=== PATIENT | male | born 1955 | race Caucasian/White ===

== ENCOUNTER 2017-06-24 08:14 | Observation (INO) | payer OTHER ==
[2017-06-24] VITALS (24 sets, daily range): BP systolic 114–166; BP diastolic 55–103; PULSE 46–95; RESP 2–26; Ht 177.8 cm; Wt 71.8 kg
[~2017-06-24] VITALS: Ht 177.8 cm; Wt 71.8 kg
[~2017-06-24 08:14] MED LIST: ALPR0.5T PO; AMLO-147 PO; ASPI325T32 PO; ATOR40TA68 PO; CLOP75TA27 PO; LISI10TA2 PO; METF500T4 PO; OMEP20CA16 PO
[2017-06-24 08:47] LABS: BASOPHIL # 0.1 10^3/ul (0.0-0.1); BASOPHILS % 0.6 % (0.0-2.0); EOSINOPHILS # 0.2 10^3/ul (0.0-0.5); HEMATOCRIT 42.7 % (42.0-52.0); HEMOGLOBIN 14.1 g/dl (14.0-18.0); LYMPHOCYTES # 2.9 10^3/ul (0.8-2.9); LYMPHOCYTES % 18.2 % (15.0-51.0); MEAN CORPUSCULAR HEMOGLOBIN 27.8 pg (29.0-33.0); MEAN CORPUSCULAR VOLUME 84.2 fl (82.0-101.0); MEAN PLATELET VOLUME 9.8 fl (7.4-10.4); MONOCYTE # 0.8 10^3/ul (0.3-0.9); MONOCYTES % 4.8 % (0.0-11.0); NEUTROPHIL # 12.1 10^3/ul (1.6-7.5); NEUTROPHILS % 74.8 % (39.0-77.0); PLATELET COUNT 247 10^3/UL (140-415); RED BLOOD COUNT 5.07 10^6/ul (4.70-6.10); RED CELL DISTRIBUTION WIDTH 14.7 % (11.5-14.5); WHITE BLOOD COUNT 16.1 10^3/ul (4.8-10.8)
[2017-06-24 08:53] LABS: HOLD TRANSMISSIONS 1
[2017-06-24] MEDS ORDERED: NITROGLYCERIN (IC) 100 MCG/ML INJ ONE (08:56)
[2017-06-24] MEDS ORDERED: FENTAnyl 50 MCG/ML VIAL ONE ×2 (08:56→10:40)
[2017-06-24] MEDS ORDERED: MIDAZOLAM 1 MG/ML 2 ML INJ ONE (08:56)
[2017-06-24] MEDS ORDERED: HEPARIN 1000 UNITS/ML 10 ML INJ ONE (08:56)
[2017-06-24] MEDS ORDERED: LIDOCAINE 1% (MDV) 20 ML INJ ONE (08:56)
[2017-06-24] MEDS ORDERED: IODIXANOL LOCM 100 ML BTL ONE (08:56)
[2017-06-24] MEDS ORDERED: VERAPAMIL 5 MG INJ ONE (08:56)
[2017-06-24 09:05] LABS: INR 1.01; PARTIAL THROMBOPLASTIN TIME 29.2 Sec (25.0-35.0); PROTIME 13.3 Sec (12.2-14.2)
[2017-06-24 09:14] LABS: ALBUMIN 4.9 g/dl (3.3-4.9); ALBUMIN/GLOBULIN RATIO 1.4; BILIRUBIN,INDIRECT 0.4 mg/dl (0-1.1); BILIRUBIN,TOTAL 0.4 mg/dl (0.2-1.3); TOTAL PROTEIN 8.4 g/dl (6.1-8.1)
[2017-06-24 09:18] LABS: CALCIUM 9.8 mg/dl (8.4-10.2); CREATININE 0.97 mg/dl (0.61-1.24); POTASSIUM 3.9 mmol/L (3.5-5.1)
[2017-06-24] MEDS ORDERED: METOPROLOL 5 MG INJ ONE ×3 (10:02→11:26)
--- NOTE | 2017-06-24 10:21 | RADRPT ---
PROCEDURE: XR Chest. CLINICAL INDICATION: Preop TECHNIQUE: A single AP view of the chest was obtained. COMPARISON: Chest x-ray dated 01/23/2016 FINDINGS: No focal airspace opacification, pleural effusion or pneumothorax is seen. The cardiomediastinal si lhouette is within normal limits for size. The osseous structures are unremarkable. IMPRESSION: Unremarkable chest x-ray. No significant interval change. RPTAT: HH .Xiomara Cano MD, MD Date Time Electronically viewed and signed by .Xiomara Cano MD, on 06/24/2017 10:20 .G/
[2017-06-24] MEDS ORDERED: ONDANSETRON 4 MG INJ ONE (11:03)
[2017-06-24] MEDS ORDERED: TICAGRELOR 90 MG TABLET ONE (11:30)
[2017-06-24] MEDS ORDERED: ASPIRIN 325 MG TAB ONE (11:30)
[2017-06-24] MEDS ORDERED: SOD CHLORIDE 0.9% 1,000 ML IV SCH (11:36)
--- NOTE | 2017-06-24 11:36 | SIPON ---
Date/Time of Note Date/Time of Note DATE: 06/24/17 TIME: 11:34 Operative Report Preoperative Diagnosis 1.chest pain 2.Abnl MPI Postoperative Diagnosis 1.1.obstructive cad s/p ptca./stent x 3 to PDA/PLB Operation/Procedure Performed 1.[facility] 2.PTCA/stent x 3 with MELISA to PDA/PLB off RCA Surgeon see signature line animal assisted therapist 1.Viviana Anesthesia: moderate sedation Estimated blood loss: minimal Transfusion Required none Specimen NA Grafts/Implants none Complications none ALPESH WELCH Jun 24, 2017 11:36
[2017-06-24] MEDS ORDERED: morphine 2 MG INJ IV PRN (12:00)
[2017-06-24] MEDS ORDERED: ONDANSETRON 4 MG INJ IV PRN (12:00)
[2017-06-24] MEDS ORDERED: METOPROLOL 5 MG INJ IV PRN (12:00)
[2017-06-24] MEDS ORDERED: OXYCODONE/ACETAMINOPHEN (5/325) TAB PO PRN (12:00)
[2017-06-24] MEDS ORDERED: AL HYDROX/MG HYDROX/SIMETH 30 ML CUP PO PRN (12:00)
[2017-06-24] MEDS ORDERED: ZOLPIDEM 5 MG TAB PO PRN (12:00)
[2017-06-24] MEDS ORDERED: ACETAMINOPHEN 325 MG TAB PO PRN (12:00)
[2017-06-24] MEDS ORDERED: AMIODARONE 150MG/D5W BOLUS 100 ML IV ONE (12:00)
[2017-06-24] MEDS ORDERED: AMIODARONE 900 MG in DEXTROSE 5% 482 ML IV SCH (12:00)
--- NOTE | 2017-06-24 13:37 | RADRPT ---
Vent Rate: 59 bpm RR Interval: 0 msec [place] Interval: 144 msec QRS Duration: 96 msec QT Interval: 442 msec QTC Interval: 437 msec P-R-T [place]: 69 - 48 - 83 degrees Sinus bradycardia Septal infarct , age undetermined Abnormal ECG Electronically Signed By: Rigo Quesada [id number]
[2017-06-24] MEDS ORDERED: ALPRAZOLAM 0.5 MG TAB PO PRN (17:30)
[2017-06-24] MEDS ORDERED: INSULIN ASPART [NOVOLOG] 3 ML PEN SC SCH (17:35)
[2017-06-24] MEDS: TICAGRELOR 90 MG TABLET PO SCH (20:37)
--- NOTE | 2017-06-24 20:41 | HP ---
DATE OF ADMISSION: 06/24/2017 CHIEF COMPLAINT AND HISTORY OF PRESENT ILLNESS: The patient is a 61-year-old gentleman with a histo ry of coronary artery disease, hypertension, dyslipidemia, diabetes. Was seen by Dr. Huynh' group as an outpatient and underwent nuclear stress test which was abnormal. The patient was brought int o the hospital today and underwent cardiac cath. The patient was noted to have obstructive coronary artery disease and underwent PTCA and stenting x3 to PDA/PLB. The patient had a drug-eluting stent . The patient was started on aspirin and Brilinta. Prior to admission, the patient was already on aspirin and Plavix. The patient did develop transient atrial fibrillation for which he was started on amiodarone drip; however, the patient has converted into sinus rhythm. Amiodarone has been turne d off. The patient's heart rate did drop into 40s and low 50s. The patient also was on beta blocke r. The dose will be reduced for now. The patient is chest pain-free. The patient denied any abdom inal pain. No reported vomiting. No reported resting leg pain. REVIEW OF SYSTEMS: Rest of review of systems is unremarkable. PAST MEDICAL HISTORY: The patient has a history of coronary artery disease with occlusion of the proximal circumflex. The patient is status post PTCA to proximal circumflex. FAMILY HISTORY: Father at a young age secondary to coronary artery disease. Mother had some s ort of cancer. Brother had coronary artery disease and multiple PTCAs. SOCIAL HISTORY: The patient used to smoke, although he quit smoking in 2012. No alcohol abuse. He did smoke cocaine in the mid 1970s. Currently, he smokes marijuana. PAST SURGICAL HISTORY: As above. PHYSICAL EXAMINATION: GENERAL: The patient is conscious, awake, alert. VITAL SIGNS: Heart rate 47, blood pressure 120/79, O2 sat 98% on room air. HEENT: No eye discharge or redness. Extraocular movements intact. Oropharynx clear. NECK: Supple. No mass, no thyromegaly. CHEST: Clear to auscultation. CARDIOVASCULAR: S1, S2 normal. No murmur, gallop or rub. ABDOMEN: Soft, nondistended, nontender. Bowel sounds present. EXTREMITIES: No leg edema. NEUROLOGIC: The patient is awake, alert, fairly oriented with no gross focal deficit. LABORATORIES: WBC 16.1, hemoglobin 14.1, platelets 247. Sodium 143, potassium 3.9, BUN 70, creatin ine 0.9, glucose 138. Liver enzymes normal. IMPRESSION: 1. Coronary artery disease with multiple percutaneous transluminal coronary angioplasties in the pa st and today underwent percutaneous transluminal coronary angioplasty/stenting x3 to posterior desce nding artery and posterolateral branches. The patient also is status post percutaneous coronary int ervention and stenting of the circumflex in the past. 2. Hypertension. 3. Sinus bradycardia with transient paroxysmal atrial fibrillation. The patient is currently in si nus rhythm after he was given intravenous amiodarone. 4. Dyslipidemia. 5. Diabetes type 2. PLAN: The patient admitted in ICU and will be continued on aspirin. The patient will be switched t o Brilinta. Plavix will be discontinued for now. The patient will be continued on Norvasc, Zestril , and Lipitor. Will decrease dose of Lopressor to 25 b.i.d. Will hold off on metformin due to rece nt cath. Will put him on sliding scale insulin. Plan of care discussed with nursing staff. The [place] tomlin does have unexplained leukocytosis. Will do followup CBC. If the patient still has persisten t leukocytosis, then will work him up. The patient did have slight leukocytosis during his previous admission last year in December and January 2016. Will monitor white count for now. The patient has no fe marcie and no clinical evidence of infection. Dictated By: GLORY PERSAUD/DAISY Conf#: [id number] DID#: [id number]
[2017-06-24] MEDS: INSULIN ASPART [NOVOLOG] 3 ML PEN SC SCH (20:45)
[2017-06-24] MEDS ORDERED: METOPROLOL 50 MG TAB PO SCH (21:00)
[2017-06-24] MEDS ORDERED: ATORVASTATIN 40 MG TAB PO SCH (21:00)
[2017-06-25] VITALS (15 sets, daily range): BP systolic 119–162; BP diastolic 54–109; PULSE 47–72; RESP 12–21
[2017-06-25] MEDS ORDERED: ACCU-CHEK XX SCH (02:00)
[2017-06-25 05:39] LABS: BASOPHIL # 0.1 10^3/ul (0.0-0.1); BASOPHILS % 0.5 % (0.0-2.0); EOSINOPHILS # 0.2 10^3/ul (0.0-0.5); EOSINOPHILS % 1.8 % (0.0-7.0); HEMATOCRIT 41.4 % (42.0-52.0); HEMOGLOBIN 13.7 g/dl (14.0-18.0); LYMPHOCYTES # 2.5 10^3/ul (0.8-2.9); LYMPHOCYTES % 19.5 % (15.0-51.0); MEAN CORPUSCULAR HEMOGLOBIN 28.2 pg (29.0-33.0); MEAN CORPUSCULAR HGB CONC 33.1 g/dl (32.0-37.0); MEAN CORPUSCULAR VOLUME 85.2 fl (82.0-101.0); MEAN PLATELET VOLUME 10.2 fl (7.4-10.4); MONOCYTE # 0.7 10^3/ul (0.3-0.9); NEUTROPHIL # 9.5 10^3/ul (1.6-7.5); NEUTROPHILS % 72.7 % (39.0-77.0); PLATELET COUNT 222 10^3/UL (140-415); RED BLOOD COUNT 4.86 10^6/ul (4.70-6.10); RED CELL DISTRIBUTION WIDTH 14.6 % (11.5-14.5); WHITE BLOOD COUNT 13.1 10^3/ul (4.8-10.8)
[2017-06-25] MEDS ORDERED: PANTOPRAZOLE (EC) 40 MG TAB PO SCH (06:00)
[2017-06-25 06:15] LABS: CALCIUM 9.1 mg/dl (8.4-10.2); CREATININE 0.99 mg/dl (0.61-1.24); POTASSIUM 3.6 mmol/L (3.5-5.1)
--- NOTE | 2017-06-25 07:00 | CARRPT ---
DATE OF PROCEDURE: 06/24/2017 TYPE OF PROCEDURE: 1. Left heart catheterization. 2. Coronary angiography. 3. Measurement of left ventricular end-diastolic pressure. 4. Percutaneous transluminal coronary angioplasty with placement of Synergy drug-eluting stents x3 to posterior descending artery posterolateral branch, a 2.25 x 20 mm to posterolateral branch, 2.25 x 20 mm and 2.25 x 16 mm to posterior descending artery. ATTENDING PHYSICIAN: Alpesh Huynh MD REFERRING PHYSICIAN: Self-referred. INDICATION: Unstable angina with positive stress test findings for ischemia. TYPE OF ANESTHESIA: Conscious and local. BRIEF HISTORY: Mr. Le is a 61-year-old male with history of hypertension, dyslipidemia, cardiomyop athy, decreased left ventricular ejection fraction, coronary artery disease status post prior PTCA a nd stent placement who presented with recurrent complaints of substernal chest pain concerning for u nstable angina. The patient underwent a cardiac stress test showing positive ischemia. The patient has now been brought back to cardiac geochemical laboratory technician in order to assess for the possibility of significant obstructive coronary artery disease lending to chest pain and subsequent positive stress test findi ngs. PROCEDURE: After informed consent was obtained, the patient was brought to the [facility] cardiac geochemical laboratory technician where his left radial area was prepped and draped in the usual sterile fas hion. Lidocaine 2% was infiltrated into the left radial area in order to achieve adequate local ane sthesia. Using modified Seldinger technique, the left radial artery was cannulated and a 6-Eritrean a rterial sheath was placed. A 6-Eritrean JL3.5 catheter was used to cannulate the left main coronary o stium. With contrast injection, multiple views of the left coronary arterial system were obtained. JL3.5 guidewire and a JR4 was used to cannulate the right coronary arterial ostium. With con trast injection, multiple views of the left coronary arterial system were obtained. The JL3.5 was r emoved over a guidewire, and a JR4 was used to cannulate the right coronary arterial ostium. With c ontrast injection, multiple views of the right coronary arterial system were obtained. The JR4 was removed over a guidewire after being used to cross the LV and measure left ventricular end diastolic pressure and pullback across the aortic valve to assess for significant gradient which there was no t. Subsequently at this time, given the finding of significant obstructive lesion, we moved directl y to interventional procedure. The patient was given an additional 3000 units of heparin in additio n to the 5000 he received with his radial cocktail in order to achieve an adequate pre-interventiona l ACT. A guide was used to cannulate the right coronary arterial ostium. A 0.014 balanced __ ___ guidewire was passed distal to the lesion in the PDA, and we then attempted to pass the balanced into the posterolateral branch unsuccessfully, a V Groove Cutter 50 unsuccessfully. Subsequently at th is time, it was elected to restore flow to the PDA, so balloon 2.25 x 12 mm was used to perform pre- dilation and restore flow to the PDA which was 99% subtotally occluded, and then this was upsized to a 2.5 x 12 balloon and further balloon inflations were made, improving flow within this vessel. Th is was removed, and at this time we were able to pass a V Groove Cutter 200 into the posterolateral branch. W e attempted to pass a balloon over that, but due to likely , we were not able to pass this. Ham bsequently, this wire was left in place and a Whisper wire was used to pass into the posterolateral branch and over this, we were able to pass a 2.0 balloon into the vessel and it was ballooned at the area of stenosis up to 14 atmospheres. The balloon was removed, and then the vessel was stented wi a 2.25 x 20 mm drug-eluting stent deployed at 14 atmospheres, post-dilated with the stent deliver y system up to 16 atmospheres. Stent delivery system was removed. Followup angiogram was obtained revealing excellent result, deployment of the stent, YOGI 3 flow throughout the vessel, no signs of complication, including perforation or dissection. Subsequently at this time, as the wire was left in the PDA, we were able to now stent this vessel with a 2.25 x 20 mm drug-eluting stent deployed at 14 atmospheres, post-dilated with the stent delivery system up to 14 atmospheres. Subsequently at this time, a second stent, 2.25 x 16 mm was proximal to the stent with 1 to 2 mm of overlap distal, and it was deployed at 14 atmospheres, post-dilated with stent delivery system up to 16 atmospheres. Stent balloon was then pushed to the stent overlap area and balloon inflations were made up 18 aye ospheres. The stent delivery system was removed. Followup angiogram was obtained revealing excelle nt result, deployment of all 3 stents, now YOGI 3 flow throughout both vessels and no signs of compl ication, including perforation or dissection. Subsequently at this time, the patient was given an a dditional 200 mcg of IC nitroglycerin and followup angiogram was obtained, once again revealing exce llent result. Subsequently at this time, the interventional guide and guidewires were removed. The patient was given 180 of Brilinta and 324 of aspirin. This completed the procedure. There were no noted complications. FINDINGS: 1. Coronary angiography: Left main 4 mm, no significant stenoses. Circumflex proximally is a 3 mm vessel and has a stent in it with in-stent restenosis up to approximately 70% to 80% diffusely and then the AV groove is free of significant focal stenoses. There is a mid branching obtuse mar ginal which is a 2 mm vessel and has an ostial 60% stenosis. The LAD proximally is a 3 mm vessel an d has a stenosis up to approximately 40% in its mid portion and then the LAD does kind of stop just short of the apex. There are proximal and mid branching diagonals, all sub 2 mm vessels with no sig nificant focal stenoses. The right coronary artery proximally is a 3 mm vessel and has a 30% to 40% stenosis shortly after its takeoff. In the mid portion, there is another approximately 40% stenosi s. Then, there is a dominant vessel that gives off PDA and has a 99% subtotal in-stent restenotic o cclusion throughout it diffusely and posterolateral branch is a 2.5 mm vessel and has a 90% focal st enosis in its proximal portion. 2. Measurements: Left ventricular end diastolic pressure is 15 to 16. No significant aortic steno sis by gradient. 3. PTCA and stent placement: Prior to PTCA and stent placement, the patient had a 99% subtotal occ lusion in the PDA. Post-PTCA and stent placement, the patient had no residual stenosis, YOGI 3 flow throughout the vessel and no signs of complication, including perforation or dissection. 4. PTCA and stent placement within posterolateral branch: Prior to PTCA and stent placement within posterolateral branch, the patient had a 90% focal stenosis. Post-PTCA and stent placement, the pa tient had no residual stenosis, YOGI 3 flow throughout the vessel and no signs of complication, incl uding perforation or dissection. TOTAL FLUOROSCOPY TIME: 38 minutes. TOTAL CONTRAST: mL. IMPRESSION: 1. Two-vessel obstructive coronary artery disease involving an in-stent restenotic lesion to the ci rcumflex and extremely high-grade in-stent restenotic lesion to the patient's posterior descending a rtery posterolateral branch bifurcation. Status post successful percutaneous transluminal coronary angioplasty and stent placement x3 to posterior descending artery and posterolateral branch with one to posterolateral branch 2.25 x 20 mm and 2 to posterior descending artery, 2.25 x 20 mm and 2.25 x 16 mm. 2. Normal left heart filling pressures. 3. No significant aortic stenosis by gradient. RECOMMENDATIONS: 1. In light of procedure findings at this time, the patient will be maintained now on Brilinta 90 m g 1 tab p.o. b.i.d. indefinitely, at least 1 year. 2. Aspirin 81 mg 1 tab p.o. daily indefinitely. 3. Maximize medical management. 4. Aggressive risk factor reduction. 5. The patient will be admitted to the ICU for post-intervention observation and continued manageme nt of symptoms. 6. The patient will additionally be given amiodarone load as when we crossed the patient's aortic v alve and checked LVEDP, the patient went into atrial fibrillation which was new for him and, therefo re, will give the patient amiodarone in an attempt to return to sinus rhythm. Dictated By: ALPESH HOPSON/DAISY Conf#: [id number] DID#: [id number]
[2017-06-25] MEDS: INSULIN ASPART [NOVOLOG] 3 ML PEN SC SCH (08:40)
[2017-06-25] MEDS: TICAGRELOR 90 MG TABLET PO SCH (08:45)
[2017-06-25] MEDS ORDERED: AMLODIPINE 10 MG TAB PO SCH (09:00)
[2017-06-25] MEDS ORDERED: LISINOPRIL 10 MG TAB PO SCH (09:00)
[2017-06-25] MEDS ORDERED: ASPIRIN (EC) 81 MG TAB PO SCH (09:00)
[2017-06-25] MEDS ORDERED: METOPROLOL 25 MG TAB PO SCH (09:00)
--- NOTE | 2017-06-25 10:00 | CONS ---
Date/Time of Note Date/Time of Note DATE: 06/25/17 TIME: 09:50 Assessment/Plan Assessment/Plan Chief Complaint/Hosp Course IMP: 1.POD#1 s/p pTCA/stent x 3 to RCA/PLB/PDA with MELISA 2.HTN 3.HL 4.DM 5.PAF Recc: -Continue brilinta/asa -Continue zestril/norvasc -Contiue statin -ambulate patient and if no sig chest pain/dizziness/sob then patient ok for d/ c -Patient with scheduled f/u 07/06/17@9:20 pm wednesday Problems: Consultation Date/Type/Reason Admit Date/Time Jun 24, 2017 at 11:58 Initial Consult Date 06/24/2017 Type of Consultation: Cardiology Reason for Consultation s/p pTCA/stent Referring Provider: GLORY MCNEIL MD Exam/Review of Systems Vital Signs Vitals Vital Signs Date Time Temp Pulse Resp B/P Pulse Ox O2 Delivery O2 Flow Rate FiO2 06/25/17 06:00 61 19 123/84 99 Room Air 06/25/17 04:00 98.3 Intake and Output 06/24/17 06/24/17 06/25/17 15:00 23:00 07:00 Intake Total 478.4 ml 833.4 ml 360 ml Output Total 725 ml 900 ml Balance -246.6 ml -66.6 ml 360 ml Exam Review of Systems: CONSTITUTIONAL: No fevers, chills. PULMONARY: No sob CARDIOVASCULAR: No chest pain/palpitations GASTROINTESTINAL: No nausea/vomiting. GENITOURINARY: No hematuria/dysuria. MUSCULOSKELETAL: No myagias/arthalgias. PSYCHIATRIC: The patient denies depression. NEUROLOGIC: No weakness Constitutional: oriented Psych: no complaints Head: normocephalic ENMT: mucosa pink and moist Neck: jvd (8-9 cm water), supple Respiratory: diminished breath sounds (at bases/B) Cardiovascular: regular rate and rhythm Gastrointestinal: non-tender, soft Musculoskeletal: muscle tone (normal) Extremities: edema (none) Neurological: other (No focal deficits) Results Result Diagram: 06/25/17 0437 06/25/17 0437 Results 24 hrs Laboratory Tests Test 06/24/17 20:44 06/25/17 01:47 06/25/17 04:37 06/25/17 08:39 Bedside Glucose 108 85 99 White Blood Count 13.1 H Red Blood Count 4.86 Hemoglobin 13.7 L Hematocrit 41.4 L Mean Corpuscular Volume 85.2 Mean Corpuscular Hemoglobin 28.2 L Mean Corpuscular Hemoglobin Concent 33.1 Red Cell Distribution Width 14.6 H Platelet Count 222 Mean Platelet Volume 10.2 Neutrophils % 72.7 Lymphocytes % 19.5 Monocytes % 5.0 Eosinophils % 1.8 Basophils % 0.5 Nucleated Red Blood Cells % 0.0 Neutrophils # 9.5 H Lymphocytes # 2.5 Monocytes # 0.7 Eosinophils # 0.2 Basophils # 0.1 Nucleated Red Blood Cells # 0.0 Sodium Level 139 Potassium Level 3.6 Chloride Level 108 Carbon Dioxide Level 24 Anion Gap 11 # Blood Urea Nitrogen 16 Creatinine 0.99 Glucose Level 90 # Calcium Level 9.1 Medications Medications Current Medications Aspirin (Halfprin) 81 mg DAILY PO Last administered on 06/25/17 08:34; Admin Dose 81 MG; Start 06/25/17 at 09:00 Ticagrelor (Brilinta) 90 mg BID PO Last administered on 06/25/17 08:45; Admin Dose 90 MG; Start 06/24/17 at 21:00 Acetaminophen (Tylenol Tab) 650 mg Q4H PRN PO NON-CARDIAC PAIN LEVEL 1-3; Start 06/24/17 at 12:00 Oxycodone/ Acetaminophen (Percocet (5/ 325)) 1 tab Q4H PRN PO REPORTED NON- CARDIAC PAIN 4-7; Start 06/24/17 at 12:00 Morphine Sulfate (morphine) 1 mg Q1H PRN IV PAIN NOT RELIEVED BY OTHERS; Start 06/24/17 at 12:00 Al Hydrox/Mg Hydrox/Simethicone (Mag-Al Plus) 30 ml Q4H PRN PO GASTROINTESTINAL UPSET; Start 06/24/17 at 12:00 Ondansetron HCl (Zofran Inj) 4 mg Q4H PRN IV NAUSEA AND/OR VOMITING; Start at 12:00 Metoprolol Tartrate 5 mg 5 mg Q4H PRN IV HR>110 Hold SBP<100; Start 06/24/17 at 12:00 Amiodarone HCl/ Dextrose (Cordarone Iv/ D5W) 500 ml @ 0 mls/hr Q0M IV Last administered on 06/24/17 14:11; Admin Dose 33.4 MLS/HR; Start 06/24/17 at 12: 00; Stop 06/25/17 at 11:59 Alprazolam (Xanax) 0.5 mg QHS PRN PO insomnia and anxiety; Start 06/24/17 at 17:30 Amlodipine Besylate (Norvasc) 10 mg DAILY PO Last administered on 06/25/17 08 :34; Admin Dose 10 MG; Start 06/25/17 at 09:00 Atorvastatin Calcium (Lipitor) 40 mg QHS PO Last administered on 06/24/17 20: 37; Admin Dose 40 MG; Start 06/24/17 at 21:00 Lisinopril (Zestril) 10 mg DAILY PO Last administered on 06/25/17 08:35; Admin Dose 10 MG; Start 06/25/17 at 09:00 Pantoprazole (Protonix Tab) 40 mg DAILY@06 PO Last administered on 06/25/17 06:00; Admin Dose 40 MG; Start 06/25/17 at 06:00 Diagnostic Test (Pha) (Accu-Chek) 1 ea 02 XX Last administered on 06/25/17 01 :49; Admin Dose 1 EA; Start 06/25/17 at 02:00 Insulin Aspart (Novolog Insulin Pen) NOVOLOG *MILD* ALGORITHM BID SC ; Start at 21:00 Metoprolol Tartrate (Lopressor) 25 mg BID PO ; Start 06/25/17 at 09:00 ALPESH WELCH Jun 25, 2017 10:00
[2017-06-25 12:49] LABS: CK-MB 3.66 ng/ml (0.0-2.4)
[2017-06-25 13:02] LABS: TROPONIN-I 0.461 ng/ml (0.00-0.12)
--- NOTE | 2017-06-25 13:49 | RADRPT ---
Vent Rate: 59 bpm RR Interval: 0 msec [place] Interval: 160 msec QRS Duration: 108 msec QT Interval: 474 msec QTC Interval: 469 msec P-R-T [place]: 56 - -64 - 24 degrees Sinus bradycardia Left anterior fascicular block Nonspecific ST and T wave abnormality Prolonged QT Abnormal ECG Electronically Signed By: Rigo Quesada [id number]
--- NOTE | 2017-06-25 22:10 | DS ---
Date/Time of Note Date/Time of Note DATE: 06/25/17 TIME: 22:08 Discharge Summary Admission/Discharge Info Admit Date/Time Jun 24, 2017 at 11:58 Discharge Date/Time Jun 25, 2017 at 14:25 Patient Condition: Stable Hx of Present Illness The patient is a 61-year-old gentleman with a history of coronary artery disease , hypertension, dyslipidemia, diabetes. Was seen by Dr. Huynh' group as an outpatient and underwent nuclear stress test which was abnormal. The patient was brought into the hospital today and underwent cardiac cath. The patient was noted to have obstructive coronary artery disease and underwent PTCA and stenting x3 to PDA/PLB. The patient had a drug-eluting stent. The patient was started on aspirin and Brilinta. Prior to admission, the patient was already on aspirin and Plavix. The patient did develop transient atrial fibrillation for which he was started on amiodarone drip; however, the patient has converted into sinus rhythm. Amiodarone has been turned off. The patient's heart rate did drop into 40s and low 50s. The patient also was on beta edel. The dose will be reduced for now. The patient is chest pain-free. The patient denied any abdominal pain. No reported vomiting. No reported resting leg pain. Hospital Course 1. Obstructive coronary artery disease with multiple percutaneous transluminal coronary angioplasties in the past and today underwent percutaneous transluminal coronary angioplasty/stenting x3 to posterior descending artery and posterolateral branches. The patient also is status post percutaneous coronary intervention and stenting of the circumflex in the past. 2. Hypertension. 3. Sinus bradycardia with transient paroxysmal atrial fibrillation. The patient is currently in sinus rhythm after he was given intravenous amiodarone. 4. Dyslipidemia. 5. Diabetes type 2. Home Meds Active Scripts Metformin Hcl* (Metformin Hcl*) 500 Mg Tablet, 500 MG PO WITH BREAKFAST DINNE, # 60 TAB Prov:NINI BRAVO MD 02/06/16 Amlodipine Besylate* (Amlodipine Besylate*) 10 Mg Tablet, 10 MG PO DAILY, #30 TAB Prov:NINI BRAVO MD 02/06/16 Alprazolam* (Xanax*) 0.5 Mg Tab, 0.5 MG PO QHS Y for insomnia and anxiety, #10 TAB Prov:KATY HE MD 01/24/16 Aspirin (Aspir-Erin) 325 Mg Tablet., 325 MG PO DAILY for 30 Days Prov:KATY HE MD 01/24/16 Reported Medications Omeprazole* (Omeprazole*) 20 Mg Capsule., 20 MG PO DAILY, #30 CAP 01/23/16 Atorvastatin* (Atorvastatin*) 40 Mg Tablet, 40 MG PO QHS, #30 TAB 01/23/16 Lisinopril* (Lisinopril*) 10 Mg Tablet, 10 MG PO DAILY, #30 TAB 01/23/16 Clopidogrel Bisulfate (Clopidogrel) 75 Mg Tablet, 75 MG PO DAILY, #30 TAB 01/23/16 Follow-up Plan f/up with Dr Huynh in 2 weeks. Primary Care Provider Not On Staff Doctor Time spent on discharge: > 30 minutes Pending Labs Laboratory Tests Test 06/25/17 01:47 06/25/17 04:37 06/25/17 08:39 06/25/17 11:05 Bedside Glucose 85mg/dL (70-220) 99mg/dL (70-220) White Blood Count 13.110^3/ul (4.8-10.8) Red Blood Count 4.8610^6/ul (4.70-6.10) Hemoglobin 13.7g/dl (14.0-18.0) Hematocrit 41.4% (42.0-52.0) Mean Corpuscular Volume 85.2fl (82.0-101.0) Mean Corpuscular Hemoglobin 28.2pg (29.0-33.0) Mean Corpuscular Hemoglobin Concent 33.1g/dl (32.0-37.0) Red Cell Distribution Width 14.6% (11.5-14.5) Platelet Count 97831^3/UL (140-415) Mean Platelet Volume 10.2fl (7.4-10.4) Neutrophils % 72.7% (39.0-77.0) Lymphocytes % 19.5% (15.0-51.0) Monocytes % 5.0% (0.0-11.0) Eosinophils % 1.8% (0.0-7.0) Basophils % 0.5% (0.0-2.0) Nucleated Red Blood Cells % 0.0/100WBC (0.0-0.0) Neutrophils # 9.510^3/ul (1.6-7.5) Lymphocytes # 2.510^3/ul (0.8-2.9) Monocytes # 0.710^3/ul (0.3-0.9) Eosinophils # 0.210^3/ul (0.0-0.5) Basophils # 0.110^3/ul (0.0-0.1) Nucleated Red Blood Cells # 0.010^3/ul (0.0-0.0) Sodium Level 139mmol/L (135-144) Potassium Level 3.6mmol/L (3.5-5.1) Chloride Level 108mmol/L (97-110) Carbon Dioxide Level 24mmol/L (21-31) Anion Gap 11 (8-16) Blood Urea Nitrogen 16mg/dl (7-20) Creatinine 0.99mg/dl (0.61-1.24) Glucose Level 90mg/dl (70-220) Calcium Level 9.1mg/dl (8.4-10.2) Creatine Kinase 168IU/L (23-200) Creatine Kinase Index 2.2 Creatinine Kinase MB (Mass) 3.66ng/ml (0.0-2.4) Troponin I 0.461ng/ml (0.00-0.12) BAUDILIO MARIE Jun 25, 2017 22:10
== END 2017-06-25 14:25 | disposition home or self-care (01) ==
LOC: SDS 08:14 → REC 11:58 → ICU 12:10
PROVIDERS: ADMIT Internal Medicine; ATTEND Internal Medicine
DX: I25.110 Atherosclerotic heart disease of native coronary artery with unstable angina pectoris (principal); Z95.5 Presence of coronary angioplasty implant and graft; I10 Essential (primary) hypertension; E11.9 Type 2 diabetes mellitus without complications; R00.1 Bradycardia, unspecified; I48.0 Paroxysmal atrial fibrillation; E78.5 Hyperlipidemia, unspecified; Z82.49 Family history of ischemic heart disease and other diseases of the circulatory system
CPT/HCPCS: 71010; 80048; 80053; 82550; 82553; 82962; 84484; 85025; 85610; 85730; 93005; 93458; C1725; C1874; C1887; C9600; J0282; J1644; J1815; J2250; J2405; J3010; J7060; Q9967; Z7500; Z7610; 99217; G0378

== ENCOUNTER 2017-07-29 07:00 | Observation (INO) | payer OTHER ==
[2017-07-29] VITALS (14 sets, daily range): BP systolic 110–159; BP diastolic 65–90; PULSE 45–64; RESP 12–18; Ht 177.8 cm; Wt 73.4 kg
[~2017-07-29] VITALS: Ht 177.8 cm; Wt 73.4 kg
[2017-07-29] MEDS ORDERED: LISI40TA9 PO (07:37)
[2017-07-29] MEDS ORDERED: TICA90TA PO (07:38)
[2017-07-29] MEDS ORDERED: HYDR-3671 PO (07:38)
[2017-07-29] MEDS ORDERED: ASPI-664 PO (07:39)
[2017-07-29 08:27] LABS: BASOPHIL # 0.1 10^3/ul (0.0-0.1); BASOPHILS % 0.6 % (0.0-2.0); EOSINOPHILS # 0.2 10^3/ul (0.0-0.5); EOSINOPHILS % 1.1 % (0.0-7.0); HEMATOCRIT 42.5 % (42.0-52.0); HEMOGLOBIN 13.9 g/dl (14.0-18.0); LYMPHOCYTES # 1.8 10^3/ul (0.8-2.9); LYMPHOCYTES % 13.1 % (15.0-51.0); MEAN CORPUSCULAR HEMOGLOBIN 28.1 pg (29.0-33.0); MEAN CORPUSCULAR HGB CONC 32.7 g/dl (32.0-37.0); MEAN PLATELET VOLUME 9.6 fl (7.4-10.4); MONOCYTE # 0.7 10^3/ul (0.3-0.9); MONOCYTES % 4.9 % (0.0-11.0); NEUTROPHIL # 11.2 10^3/ul (1.6-7.5); NEUTROPHILS % 79.6 % (39.0-77.0); PLATELET COUNT 232 10^3/UL (140-415); RED BLOOD COUNT 4.94 10^6/ul (4.70-6.10); RED CELL DISTRIBUTION WIDTH 14.9 % (11.5-14.5)
--- NOTE | 2017-07-29 08:29 | RADRPT ---
PROCEDURE: XR Chest. CLINICAL INDICATION: Preoperative coronary angioplasty clearance. TECHNIQUE: AP Portable chest. COMPARISON: Chest x-ray dated 01/23 2016 and 06/24/2017 FINDINGS: The soft tissues and bones are remarkable for mild thoracic spondylosis and bilateral acromioclavicu lar osteoarthropathy. No focal infiltrates, masses or effusions are present. Hyperinflation is noted . The mediastinum and heart are normal. No pneumothorax is present. IMPRESSION: 1. No radiographic evidence for acute cardiopulmonary disease 2. Hyperinflation RPTAT: HDC .Aliza Bardales MD, Date Time Electronically viewed and signed by .Aliza Bardales MD, on 07/29/2017 08:29 .C/
[2017-07-29 08:41] LABS: HOLD TRANSMISSIONS 1
[2017-07-29 08:46] LABS: INR 0.97; PROTIME 12.9 Sec (12.2-14.2)
[2017-07-29 08:47] LABS: PARTIAL THROMBOPLASTIN TIME 30.1 Sec (25.0-35.0)
[2017-07-29 08:51] LABS: CHOL/HDL RATIO 3.8 RATIO
[2017-07-29 09:00] LABS: CALCIUM 9.5 mg/dl (8.4-10.2); CREATININE 1.13 mg/dl (0.61-1.24); POTASSIUM 3.8 mmol/L (3.5-5.1)
[2017-07-29] MEDS ORDERED: MIDAZOLAM 1 MG/ML 2 ML INJ ONE (09:05)
[2017-07-29] MEDS ORDERED: IODIXANOL LOCM 100 ML BTL ONE (09:05)
[2017-07-29] MEDS ORDERED: HEPARIN 1000 UNITS/ML 10 ML INJ ONE (09:05)
[2017-07-29] MEDS ORDERED: LIDOCAINE 1% (MDV) 20 ML INJ ONE (09:05)
[2017-07-29] MEDS ORDERED: VERAPAMIL 5 MG INJ ONE (09:06)
[2017-07-29] MEDS ORDERED: NITROGLYCERIN (IC) 100 MCG/ML INJ ONE (09:06)
[2017-07-29] MEDS ORDERED: FENTAnyl 50 MCG/ML VIAL ONE (09:06)
[2017-07-29] MEDS ORDERED: ASPIRIN 325 MG TAB ONE (09:41)
[2017-07-29] MEDS ORDERED: SOD CHLORIDE 0.9% 500 ML ONE (09:41)
[2017-07-29] MEDS ORDERED: TICAGRELOR 90 MG TABLET ONE (09:41)
[2017-07-29] MEDS ORDERED: BIVALIRUDIN 250MG /NS 50 ML 50 ML IVPB ONE (09:47)
[2017-07-29] MEDS ORDERED: IOHEXOL 350MG/ML 50 ML BTL ONE (10:53)
[2017-07-29] MEDS ORDERED: SOD CHLORIDE 0.9% 1,000 ML IV SCH (10:54)
--- NOTE | 2017-07-29 10:56 | SIPON ---
Date/Time of Note Date/Time of Note DATE: 07/29/17 TIME: 10:55 Operative Report Preoperative Diagnosis 1.Obstructive cad Postoperative Diagnosis 1.successful PTCA/stent x 2 to LCX Operation/Procedure Performed 1.[facility] 2.PTCA/stent x 2 with Valentina to LCX Surgeon see signature line custody assistant 1.Viviana Anesthesia: moderate sedation Estimated blood loss: minimal Transfusion Required none Specimen NA Grafts/Implants none Complications none ALPESH WELCH Jul 29, 2017 10:56
[2017-07-29] MEDS ORDERED: ZOLPIDEM 5 MG TAB PO PRN (11:00)
[2017-07-29] MEDS ORDERED: ACETAMINOPHEN 325 MG TAB PO PRN (11:00)
[2017-07-29] MEDS ORDERED: AL HYDROX/MG HYDROX/SIMETH 30 ML CUP PO PRN (11:00)
[2017-07-29] MEDS ORDERED: OXYCODONE/ACETAMINOPHEN (5/325) TAB PO PRN (11:00)
[2017-07-29] MEDS ORDERED: ONDANSETRON 4 MG INJ IV PRN (11:00)
--- NOTE | 2017-07-29 12:19 | HP ---
Date/Time of Note Date/Time of Note DATE: 07/29/17 TIME: 12:09 Assessment/Plan VTE Prophylaxis VTE Prophylaxis Intervention: SCD's Assessment/Plan Assessment/Plan -Active coronary artery disease, status post successful PTCA/stent x [address] Huynh on 07/29. Continue ICU monitoring, continue aspirin and Brilinta -History of PTCA to LCX in January 2016 and status post s/p PTCA/stent x 3 to RCA/ PLB/PDA with MELISA in May 2017 -Hypertension -Hyperlipidemia -Diabetes mellitus type 2 Further recommendations based on clinical course. Plan of care discussed with Dr. Luis. HPI/ROS Admit Date/Time Admit Date/Time Hx of Present Illness The patient is 61-year-old male with history of myocardial infarction in 2002 2009 and 2014, history of obstructive coronary artery disease, obstructive cardiomyopathy with decreased ejection fraction,paroxysmal atrial fibrillation, hypertension, hyperlipidemia, diabetes mellitus. Patient had an multiple drug- eluting stents placement in the past, please see assessment and plan for more information. Patient was evaluated by Dr. Huynh in cardiology consultation. Patient brought for a left cardiac catheterization and underwent PTCA/stent x [address] Huynh today with a right radial approach. Postprocedure patient is admitted for observation and to intensive care unit. Patient denies any chest pain denies any soft shortness of breath, denies any nausea vomiting. PMH/Family/Social Past Medical History Medical History: coronary artery disease, diabetes, high cholesterol, hypertension Family History Significant Family History: other (Father at a young age secondary to coronary artery disease. Mother had some sort of cancer. Brother had coronary artery disease and multiple PTCAs.) Social History Alcohol Use: none Smoking Status: Former smoker Drug Use: none Exam/Review of Systems Vital Signs Vitals Vital Signs Date Time Temp Pulse Resp B/P Pulse Ox O2 Delivery O2 Flow Rate FiO2 07/29/17 07:55 97.3 64 16 134/70 100 Room Air Labs Result Diagram: 07/29/17 0816 07/29/17 0816 Medications Medications Current Medications Aspirin (Halfprin) 81 mg DAILY PO ; Start 07/30/17 at 09:00 Ticagrelor (Brilinta) 90 mg BID PO ; Start 07/29/17 at 21:00 Acetaminophen (Tylenol Tab) 650 mg Q4H PRN PO NON-CARDIAC PAIN LEVEL 1-3; Start 07/29/17 at 11:00 Oxycodone/ Acetaminophen (Percocet (5/ 325)) 1 tab Q4H PRN PO REPORTED NON- CARDIAC PAIN 4-7; Start 07/29/17 at 11:00 Al Hydrox/Mg Hydrox/Simethicone (Mag-Al Plus) 30 ml Q4H PRN PO GASTROINTESTINAL UPSET; Start 07/29/17 at 11:00 Ondansetron HCl 4 mg 4 mg Q4H PRN IV NAUSEA AND/OR VOMITING; Start 07/29/17 at 11:00 Sodium Chloride (NS) 1,000 ml @ 75 mls/hr [id number] IV Last administered on t 11:31; Admin Dose 75 MLS/HR; Start 07/29/17 at 10:54; Stop 07/30/17 at 00:13 BAUDILIO MARIE Jul 29, 2017 12:19
--- NOTE | 2017-07-29 13:13 | CARRPT ---
DATE OF PROCEDURE: 07/29/2017 TYPE OF PROCEDURE: 1. Left heart catheterization. 2. Coronary angiography. 3. Measurement of left ventricular end diastolic pressure. 4. Percutaneous transluminal coronary angioplasty with placement of Synergy drug-eluting stent x2 to circumflex, 2.5 x 16 mm and 2.25 x 8 mm. ATTENDING PHYSICIAN: Alpesh Huynh MD REFERRING PHYSICIAN: Self-referred. INDICATION: Angina refractory to medical therapy with known obstructive coronary artery disease. TYPE OF ANESTHESIA: Conscious local. BRIEF HISTORY: Mr. Le is a 61-year-old male with history of hypertension, dyslipidemia, coronary artery disease, status post prior PTCA and stent placement who had recently underwent percutaneous coronary intervention and stent placement to right coronary artery, presented with ongoing chest pain and known obstructive lesion in the circumflex and therefore, brought back in order to intervene upon the patient's circumflex vessel and to reassess the patient's right coronary artery stent due to prior rapid in-stent restenosis. PROCEDURE: After informed consent was obtained, the patient was brought to the [facility]iac [facility]atheter[facility] where his right radial area was prepped and draped in usual sterile fashion. Lidocaine 2% was infiltrated into right radial area in order to achieve adequate anesthesia. Using modified Seldinger technique the right radial artery was cannulated and a 6-Urdu arterial sheath was placed. A 6-Urdu CLS3 catheter was used to cannulate the left main coronary ostium. The patient was started on Angiomax bolus continuous infusion after receiving a radial cocktail at 2.5 verapamil and 200 of IC nitroglycerin. A 0.014 loose guidewire was passed distal to the lesion in the obtuse marginal circumflex. The lesions are pretreated with a 2.0 x 12 mm balloon inflated up to 14-16 atmospheres and removed and a 2.5 x 12 mm balloon was used to inflate in the proximal portion multiple times up to 14- 16 atmospheres and removed. Subsequently, at this time, a 2.25 x 8 mm drug- eluting stent was passed into the most distal portion of the lesion and deployed at 12 atmospheres postdilated with the stent delivery system up to 14 atmospheres. The stent delivery balloon was removed revealing excellent result with deployment of the stent, YOGI 3 flow throughout the vessel, no signs of complication including perforation or dissection. Subsequently, at this time, a second 2.25 x 16 mm drug-eluting stent was then added in the proximal portion of this lesion and with 1 mm overlap of the distal stent and deployed at 14 atmospheres, post-dilated with the stent delivery system up to 16 atmospheres and then the stent overlap area was once again inflated up to 12 atmospheres. The stent delivery balloon was removed and followup angiogram was obtained revealing excellent result with deployment of both stents, YOGI 3 flow throughout the vessel, no signs of complication including perforation or dissection. Additionally noted that the circulation in the AV groove remained widely patent with no effect on flow. Subsequently, at this time, the interventional guide and guidewires were removed, a LVEDP had previously been measured and pullback across the aortic valve to assess for significant gradient , which there was not. Subsequently, at this time, the patient was given 180 of Brilinta, 325 of aspirin. The patient's sheath was removed and a TR band was applied. This completed the procedure. There were no noted complications. FINDINGS: 1. Coronary angiography. Left main short 4 mm, no significant stenoses. LAD proximally is a 3 mm vessel and has a 20-30% stenosis and the remainder of the LAD is widely patent. The circumflex proximally is a 2.5 mm vessel and has a long tubular stenosis up to approximately 80-90% and then just at the bifurcation with the AV groove and obtuse marginal branch a 90% stenosis. The circ continuation AV groove is free of significant focal stenoses, but continues with a sub 2 mm vessel. The patient's right coronary artery proximally is a 3 mm vessel, shortly after takeoff has approximately a 30% stenosis and has a widely patent stented zone in the mid portion as his stent there is in-stent restenosis up to approximately 30% and then in the distal portion to the vessel it is widely patent stent with no significant in-stent restenosis. This goes into a PDA which is 2 mm with no significant focal stenoses and a posterolateral branch which is 2 mm with no significant focal stenoses. PTCA and stent placement: Prior to PTCA and stent placement in the patient's circumflex vessel, he had approximately a 90% stenosis and in-stent restenosis within the circumflex stent and a 90% stenosis just at the bifurcation of the obtuse marginal. Post-PTCA and stent placement, the patient had no residual stenosis, YOGI 3 flow throughout the vessel and no signs of complication including perforation or dissection and once again and no effect upon the flow of the circ continuation AV groove. Measurement of LVEDP was 17 to 19. No significant aortic stenosis by gradient. TOTAL FLUOROSCOPY TIME: 19 minutes. TOTAL CONTRAST: 250 mL. IMPRESSION: 1. Single vessel obstructive coronary artery disease involving the patient's ostial to mid circumflex and continuation into an obtuse marginal. Status post successful PTCA and stent placement x2 with drug-eluting stent 2.25 x 8 mm and 2.5 x 16 mm Synergy. 2. Widely patent right coronary stent with mild in-stent restenosis in mid portion. 3. High normal to mildly elevated left heart filling pressures. 4. No significant aortic stenosis by gradient. RECOMMENDATIONS: In light of procedure findings at this time would: 1. Maintain the patient on aspirin 81 mg 1 tablet p.o. daily indefinitely. 2. Brilinta 90 mg 1 tablet p.o. b.i.d. 3. Maximize medical management. 4. Aggressive risk factor reduction. 5. The patient was readmitted to the ICU for post-intervention observation and continued management of symptoms with probable discharge the following day. Dictated By: ALPESH HOPSON/DAISY Conf#: [id number] DID#: [id number] NEREYDA
--- NOTE | 2017-07-29 15:17 | RADRPT ---
Vent Rate: 59 bpm RR Interval: 0 msec NC Interval: 148 msec QRS Duration: 110 msec QT Interval: 450 msec QTC Interval: 445 msec P-R-T [place]: 55 - -57 - 79 degrees Sinus bradycardia Right bundle branch block Left anterior fascicular block Bifascicular block Abnormal ECG Electronically Signed By: Rigo Quesada [id number]
--- NOTE | 2017-07-29 15:19 | RADRPT ---
Vent Rate: 50 bpm RR Interval: 0 msec IN Interval: 148 msec QRS Duration: 116 msec QT Interval: 468 msec QTC Interval: 426 msec P-R-T [place]: 57 - -35 - 84 degrees Sinus bradycardia Left axis deviation Nonspecific T wave abnormality Abnormal ECG Electronically Signed By: Rigo Quesada [id number]
[2017-07-29] MEDS: TICAGRELOR 90 MG TABLET PO SCH (21:51)
[2017-07-30] VITALS (15 sets, daily range): BP systolic 107–180; BP diastolic 56–93; PULSE 46–69; RESP 11–20
[2017-07-30 06:40] LABS: BASOPHIL # 0.1 10^3/ul (0.0-0.1); BASOPHILS % 0.5 % (0.0-2.0); EOSINOPHILS # 0.2 10^3/ul (0.0-0.5); HEMATOCRIT 39.2 % (42.0-52.0); HEMOGLOBIN 13.4 g/dl (14.0-18.0); LYMPHOCYTES # 1.8 10^3/ul (0.8-2.9); MEAN CORPUSCULAR HEMOGLOBIN 28.9 pg (29.0-33.0); MEAN CORPUSCULAR HGB CONC 34.2 g/dl (32.0-37.0); MEAN CORPUSCULAR VOLUME 84.5 fl (82.0-101.0); MEAN PLATELET VOLUME 9.9 fl (7.4-10.4); MONOCYTE # 0.5 10^3/ul (0.3-0.9); MONOCYTES % 4.6 % (0.0-11.0); NEUTROPHIL # 9.1 10^3/ul (1.6-7.5); NEUTROPHILS % 77.4 % (39.0-77.0); PLATELET COUNT 208 10^3/UL (140-415); RED BLOOD COUNT 4.64 10^6/ul (4.70-6.10); RED CELL DISTRIBUTION WIDTH 14.9 % (11.5-14.5); WHITE BLOOD COUNT 11.8 10^3/ul (4.8-10.8)
[2017-07-30 07:12] LABS: CALCIUM 9.1 mg/dl (8.4-10.2); CREATININE 1.03 mg/dl (0.61-1.24); POTASSIUM 3.8 mmol/L (3.5-5.1)
[2017-07-30] MEDS: TICAGRELOR 90 MG TABLET PO SCH (08:50)
[2017-07-30] MEDS ORDERED: ASPIRIN (EC) 81 MG TAB PO SCH (09:00)
[2017-07-30] MEDS ORDERED: LISINOPRIL 20 MG TAB PO SCH (11:30)
[2017-07-30] MEDS ORDERED: AMLODIPINE 10 MG TAB PO SCH (11:30)
--- NOTE | 2017-07-30 11:33 | CONS ---
Date/Time of Note Date/Time of Note DATE: 07/30/17 TIME: 11:22 Assessment/Plan Assessment/Plan Chief Complaint/Hosp Course IMP: 1. cad s/p PTCA/stent x 2 to LCX POD#1 2. HTN 3.Angina 4.HL Recc: -Tele -serial ecg's -Continue asa/brilinta -F/U BP after receiving norvasc/hydralazine/zestril -Continue statin therapy Problems: Consultation Date/Type/Reason Admit Date/Time Jul 29, 2017 at 11:00 Initial Consult Date 07/29/2017 Type of Consultation: cardiology Reason for Consultation s/p PTCa/stent Referring Provider: GLORY MCNEIL MD Exam/Review of Systems Vital Signs Vitals Vital Signs Date Time Temp Pulse Resp B/P Pulse Ox O2 Delivery O2 Flow Rate FiO2 07/30/17 09:00 60 14 144/92 99 Room Air 07/30/17 07:45 98.6 Intake and Output 07/29/17 07/29/17 07/30/17 15:00 23:00 07:00 Intake Total 550 ml 1145 ml 425 ml Output Total 750 ml 1075 ml 650 ml Balance -200 ml 70 ml -225 ml Exam Review of Systems: CONSTITUTIONAL: No fevers, chills. PULMONARY: No sob CARDIOVASCULAR: No chest pain/palpitations GASTROINTESTINAL: No nausea/vomiting. GENITOURINARY: No hematuria/dysuria. MUSCULOSKELETAL: No myagias/arthalgias. PSYCHIATRIC: The patient denies depression. NEUROLOGIC: No weakness Constitutional: alert, oriented Psych: no complaints Head: normocephalic ENMT: mucosa pink and moist Neck: jvd (8 cm water), supple Respiratory: diminished breath sounds Cardiovascular: regular rate and rhythm Gastrointestinal: non-tender, soft Musculoskeletal: muscle tone (normal) Extremities: edema (none) Neurological: other (No focal deficits) Results Result Diagram: 07/30/17 0610 07/30/17 0610 Results 24 hrs Laboratory Tests Test 07/29/17 18:44 07/30/17 06:10 Bedside Glucose 94 White Blood Count 11.8 H Red Blood Count 4.64 L Hemoglobin 13.4 L Hematocrit 39.2 L Mean Corpuscular Volume 84.5 Mean Corpuscular Hemoglobin 28.9 L Mean Corpuscular Hemoglobin Concent 34.2 Red Cell Distribution Width 14.9 H Platelet Count 208 Mean Platelet Volume 9.9 Neutrophils % 77.4 H Lymphocytes % 15.0 Monocytes % 4.6 Eosinophils % 2.0 Basophils % 0.5 Nucleated Red Blood Cells % 0.0 Neutrophils # 9.1 H Lymphocytes # 1.8 Monocytes # 0.5 Eosinophils # 0.2 Basophils # 0.1 Nucleated Red Blood Cells # 0.0 Sodium Level 140 Potassium Level 3.8 Chloride Level 107 Carbon Dioxide Level 21 Anion Gap 16 Blood Urea Nitrogen 21 H Creatinine 1.03 Glucose Level 102 Calcium Level 9.1 Medications Medications Current Medications Aspirin (Halfprin) 81 mg DAILY PO Last administered on 07/30/17 08:47; Admin Dose 81 MG; Start 07/30/17 at 09:00 Ticagrelor (Brilinta) 90 mg BID PO Last administered on 07/30/17 08:50; Admin Dose 90 MG; Start 07/29/17 at 21:00 Acetaminophen (Tylenol Tab) 650 mg Q4H PRN PO NON-CARDIAC PAIN LEVEL 1-3; Start 07/29/17 at 11:00 Oxycodone/ Acetaminophen (Percocet (5/ 325)) 1 tab Q4H PRN PO REPORTED NON- CARDIAC PAIN 4-7; Start 07/29/17 at 11:00 Al Hydrox/Mg Hydrox/Simethicone (Mag-Al Plus) 30 ml Q4H PRN PO GASTROINTESTINAL UPSET; Start 07/29/17 at 11:00 Ondansetron HCl (Zofran Inj) 4 mg Q4H PRN IV NAUSEA AND/OR VOMITING; Start at 11:00 Amlodipine Besylate (Norvasc) 10 mg DAILY PO ; Start 07/30/17 at 11:30 Hydralazine HCl (Apresoline) 25 mg BID PO ; Start 07/30/17 at 11:30 Lisinopril (Zestril) 40 mg DAILY PO ; Start 07/30/17 at 11:30 Atorvastatin Calcium (Lipitor) 40 mg HS PO ; Start 07/30/17 at 21:00 ALPESH WELCH Jul 30, 2017 11:33
--- NOTE | 2017-07-30 18:10 | DS ---
Date/Time of Note Date/Time of Note DATE: 07/30/17 TIME: 18:09 Discharge Summary Admission/Discharge Info Admit Date/Time Jul 29, 2017 at 11:00 Discharge Date/Time Jul 30, 2017 at 14:30 Patient Condition: Stable Hx of Present Illness The patient is 61-year-old male with history of myocardial infarction in 2002 2009 and 2014, history of obstructive coronary artery disease, obstructive cardiomyopathy with decreased ejection fraction,paroxysmal atrial fibrillation, hypertension, hyperlipidemia, diabetes mellitus. Patient had an multiple drug- eluting stents placement in the past, please see assessment and plan for more information. Patient was evaluated by Dr. Huynh in cardiology consultation. Patient brought for a left cardiac catheterization and underwent PTCA/stent x [address] Huynh today with a right radial approach. Postprocedure patient is admitted for observation and to intensive care unit. Patient denies any chest pain denies any soft shortness of breath, denies any nausea vomiting. Hospital Course -Active coronary artery disease, status post successful PTCA/stent x [address] Huynh on 07/29. Continue ICU monitoring, continue aspirin and Brilinta -History of PTCA to LCX in January 2016 and status post s/p PTCA/stent x 3 to RCA/ PLB/PDA with MELISA in May 2017 -Hypertension -Hyperlipidemia -Diabetes mellitus type 2 Home Meds Active Scripts Metformin Hcl* (Metformin Hcl*) 500 Mg Tablet, 500 MG PO WITH BREAKFAST DINNE, # 60 TAB Prov:NINI BRAVO MD 02/06/16 Amlodipine Besylate* (Amlodipine Besylate*) 10 Mg Tablet, 10 MG PO DAILY, #30 TAB Prov:NINI BRAVO MD 02/06/16 Reported Medications Aspirin (Low Dose Aspirin) 81 Mg Tablet., 81 MG PO DAILY, #30 TAB 07/29/17 Hydralazine Hcl* (Hydralazine Hcl*) 25 Mg Tab, 25 MG PO BID, #120 TAB 07/29/17 Ticagrelor* (Brilinta*) 90 Mg Tablet, 90 MG PO Q12, TAB 07/29/17 Lisinopril* (Lisinopril*) 40 Mg Tablet, 40 MG PO DAILY, #30 TAB 07/29/17 Omeprazole* (Omeprazole*) 20 Mg Capsule., 20 MG PO DAILY, #30 CAP 01/23/16 Atorvastatin* (Atorvastatin*) 40 Mg Tablet, 40 MG PO QHS, #30 TAB 01/23/16 Discontinued Reported Medications Lisinopril* (Lisinopril*) 10 Mg Tablet, 10 MG PO DAILY, #30 TAB 01/23/16 Clopidogrel Bisulfate (Clopidogrel) 75 Mg Tablet, 75 MG PO DAILY, #30 TAB 01/23/16 Discontinued Scripts Alprazolam* (Xanax*) 0.5 Mg Tab, 0.5 MG PO QHS Y for insomnia and anxiety, #10 TAB Prov:KATY HE MD 01/24/16 Aspirin (Aspir-Erin) 325 Mg Tablet., 325 MG PO DAILY for 30 Days Prov:KATY HE MD 01/24/16 Follow-up Plan f/up with Dr Huynh in 10 days. Primary Care Provider Not On Staff Doctor Pending Labs Laboratory Tests Test 07/29/17 18:44 07/30/17 06:10 07/30/17 12:57 Bedside Glucose 94mg/dL (70-220) White Blood Count 11.810^3/ul (4.8-10.8) Red Blood Count 4.6410^6/ul (4.70-6.10) Hemoglobin 13.4g/dl (14.0-18.0) Hematocrit 39.2% (42.0-52.0) Mean Corpuscular Volume 84.5fl (82.0-101.0) Mean Corpuscular Hemoglobin 28.9pg (29.0-33.0) Mean Corpuscular Hemoglobin Concent 34.2g/dl (32.0-37.0) Red Cell Distribution Width 14.9% (11.5-14.5) Platelet Count 69336^3/UL (140-415) Mean Platelet Volume 9.9fl (7.4-10.4) Neutrophils % 77.4% (39.0-77.0) Lymphocytes % 15.0% (15.0-51.0) Monocytes % 4.6% (0.0-11.0) Eosinophils % 2.0% (0.0-7.0) Basophils % 0.5% (0.0-2.0) Nucleated Red Blood Cells % 0.0/100WBC (0.0-0.0) Neutrophils # 9.110^3/ul (1.6-7.5) Lymphocytes # 1.810^3/ul (0.8-2.9) Monocytes # 0.510^3/ul (0.3-0.9) Eosinophils # 0.210^3/ul (0.0-0.5) Basophils # 0.110^3/ul (0.0-0.1) Nucleated Red Blood Cells # 0.010^3/ul (0.0-0.0) Sodium Level 140mmol/L (135-144) Potassium Level 3.8mmol/L (3.5-5.1) Chloride Level 107mmol/L (97-110) Carbon Dioxide Level 21mmol/L (21-31) Anion Gap 16 (8-16) Blood Urea Nitrogen 21mg/dl (7-20) Creatinine 1.03mg/dl (0.61-1.24) Glucose Level 102mg/dl (70-220) Calcium Level 9.1mg/dl (8.4-10.2) Troponin I 0.047ng/ml (0.00-0.12) BAUDILIO MARIE Jul 30, 2017 18:10
[2017-07-30] MEDS ORDERED: ATORVASTATIN 40 MG TAB PO SCH (21:00)
--- NOTE | 2017-08-02 13:20 | RADRPT ---
Vent Rate: 55 bpm RR Interval: 0 msec ID Interval: 140 msec QRS Duration: 112 msec QT Interval: 446 msec QTC Interval: 426 msec P-R-T [place]: 58 - -12 - 90 degrees Sinus bradycardia Septal infarct , age undetermined Abnormal ECG Electronically Signed By: Rigo Quesada [id number]
== END 2017-07-30 14:30 | disposition home or self-care (01) ==
LOC: SDS 07:00 → REC 11:00 → ICU 11:00 → SDS 14:15
PROVIDERS: ADMIT Internal Medicine; ATTEND Internal Medicine
DX: I25.119 Atherosclerotic heart disease of native coronary artery with unspecified angina pectoris (principal); I42.9 Cardiomyopathy, unspecified; I48.0 Paroxysmal atrial fibrillation; I10 Essential (primary) hypertension; E78.5 Hyperlipidemia, unspecified
CPT/HCPCS: 71010; 80048; 80061; 82962; 84484; 85025; 85610; 85730; 93005; 93458; C1725; C1874; C1887; C9600; J0583; J1644; J2250; J3010; J7040; Q9967; Z7500; Z7610; G0378

== ENCOUNTER 2018-01-05 11:17 | Observation (INO) | END 2018-01-06 16:05 | disposition home or self-care (01) ==

== ENCOUNTER 2018-04-15 10:49 | Observation (INO) | END 2018-04-16 15:20 | disposition home or self-care (01) ==

== ENCOUNTER 2018-09-03 14:12 | Emergency (ER) | payer MEDICARE, OTHER ==
[~2018-09-03] VITALS: Ht 182.9 cm; Wt 73.0 kg
[~2018-09-03 14:12] MED LIST changes: -ALPR0.5T PO; -ASPI325T32 PO; +ASPI81TA52 PO; -CLOP75TA27 PO; +HYDR-3671 PO; +ISOS30TA67 PO; -LISI10TA2 PO; +LISI40TA3 PO; +METF500T24 PO; -METF500T4 PO; +METO-448 PO; +TICA90TA PO
[2018-09-03] MEDS ORDERED: ASPIRIN 81 MG TAB PO STA (14:54)
[2018-09-03] MEDS ORDERED: ACETAMINOPHEN 325 MG TAB PO PRN (17:00)
[2018-09-03] MEDS ORDERED: ONDANSETRON 4 MG INJ IV PRN (17:00)
[2018-09-03 18:02] VITALS: BP 122/68; PULSE 58; RESP 18
--- NOTE | 2018-09-03 18:05 | HP ---
Date/Time of Note Date/Time of Note DATE: 09/03/18 TIME: 17:59 Assessment/Plan Lines/Catheters IV Catheter Type (from Nrsg): Saline Lock Assessment/Plan Assessment/Plan CHEST PAIN R/O ACS - Cardiology consult- D r Lensky - Coronary Artery Diases - Diabetes Mellitus - x 3 Angiogram with stent placement Dw Dr Ross/ Staff Result Diagram: 09/03/18 1455 09/03/18 1455 Results 24hrs Laboratory Tests Test 09/03/18 14:55 White Blood Count 16.0 #H Red Blood Count 4.45 L Hemoglobin 12.6 L Hematocrit 37.5 L Mean Corpuscular Volume 84.3 Mean Corpuscular Hemoglobin 28.3 L Mean Corpuscular Hemoglobin Concent 33.6 Red Cell Distribution Width 15.3 H Platelet Count 243 # Mean Platelet Volume 9.7 Immature Granulocytes % 0.600 H Neutrophils % 79.0 H Lymphocytes % 15.1 Monocytes % 4.4 Eosinophils % 0.5 Basophils % 0.4 Nucleated Red Blood Cells % 0.0 Immature Granulocytes # 0.090 H Neutrophils # 12.7 H Lymphocytes # 2.4 Monocytes # 0.7 Eosinophils # 0.1 Basophils # 0.1 Nucleated Red Blood Cells # 0.0 Sodium Level 137 Potassium Level 3.5 Chloride Level 103 Carbon Dioxide Level 23 Anion Gap 11 Blood Urea Nitrogen 15 Creatinine 0.97 Est Glomerular Filtrat Rate mL/min > 60 Glucose Level 254 H Calcium Level 9.7 Troponin I < 0.012 HPI/ROS Admit Date/Time Admit Date/Time ROS Eyes: no complaints PMH/Family/Social Past Medical History Medications Current Medications Ondansetron HCl (Zofran Inj) 4 mg ER BRIDGE PRN IV NAUSEA AND/OR VOMITING; Start 09/03/18 at 17:00; Stop 09/04/18 at 16:59 Acetaminophen (Tylenol Tab) 650 mg ER BRIDGE PRN PO MILD PAIN(1-3)OR ELEVATED TEMP; Start 09/03/18 at 17:00; Stop 09/04/18 at 16:59 Coded Allergies: No Known Allergies (Verified Allergy, Unknown, 09/03/18) Family History Significant Family History: other Social History Smoking Status: Never smoker Exam/Review of Systems Vital Signs Vitals Vital Signs Date Temp Pulse Resp B/P (MAP) Pulse Ox O2 O2 Flow FiO2 Time Delivery Rate 09/03/18 97.7 54 16 118/65 99 Room Air 17:00 (82) FRANKO GRAHAM Sep 03, 2018 18:05
--- NOTE | 2018-09-03 21:50 | ERD ---
ER Documentation Chief Complaint Chief Complaint CP radiating to neck X 1.5 hrs, scheduled cath at [facility] 09/07 HPI 63-year-old male with a history of CAD and hypertension presenting with complaints of tightness in his chest that radiates up into his neck. He has associated shortness of breath. He took 4 nitro prior to arrival with r esolution of his symptoms. Patient is scheduled to have a coronary angiogram on September 07. His clinical research manager is Dr. Huynh. ROS All systems reviewed and are negative except as per history of present illness. Medications Home Meds Reported Medications Isosorbide Mononitrate* (Isosorbide Mononitrate*) 30 Mg Tab.er.24h, 30 MG PO DAILY, TAB 01/05/18 Metoprolol Tartrate* (Lopressor*) 25 Mg Tab, 12.5 MG PO BID, #60 TAB 01/05/18 Omeprazole* (Omeprazole*) 20 Mg Capsule.dr, 20 MG PO DAILY, #30 CAP 01/05/18 Metformin Hcl* (Metformin Hcl*) 500 Mg Tablet, 500 MG PO WITH BREAKFAST, #30 TAB 01/05/18 Atorvastatin* (Atorvastatin*) 40 Mg Tablet, 40 MG PO QHS, #30 TAB 01/05/18 Amlodipine Besylate* (Amlodipine Besylate*) 10 Mg Tablet, 10 MG PO DAILY, #30 TAB 01/05/18 Aspirin (Low Dose Aspirin) 81 Mg Tablet.dr, 81 MG PO DAILY, #30 TAB 07/29/17 Hydralazine Hcl* (Hydralazine Hcl*) 25 Mg Tab, 25 MG PO BID, #120 TAB 07/29/17 Ticagrelor* (Brilinta*) 90 Mg Tablet, 90 MG PO Q12, TAB 07/29/17 Lisinopril* (Lisinopril*) 40 Mg Tablet, 40 MG PO DAILY, #30 TAB 07/29/17 Allergies Allergies: Coded Allergies: No Known Allergies (Verified Allergy, Unknown, 09/03/18) PMhx/Soc History of Surgery: Yes (X3 ANGIOGRAM WITH STENT PLACMENT, SHOULDER SX, HAND SX ) Anesthesia Reaction: No Hx Neurological Disorder: No Hx Respiratory Disorders: No Hx Cardiac Disorders: Yes (CAD, HTN) Hx Psychiatric Problems: No Hx Miscellaneous Medical Probl: No Hx Alcohol Use: No Hx Substance Use: No Hx Tobacco Use: No Smoking Status: Never smoker FmHx Family History: No diabetes Physical Exam Vitals Vital Signs Date Temp Pulse Resp B/P (MAP) Pulse Ox O2 O2 Flow FiO2 Time Delivery Rate 09/03/18 98.0 58 18 122/68 99 Room Air 18:02 (86) 09/03/18 97.7 54 16 118/65 99 Room Air 17:00 (82) 09/03/18 96.5 77 18 156/81 98 14:21 (106) Physical Exam Const: No acute distress Head: Atraumatic Eyes: Normal Conjunctiva ENT: Normal External Ears, Nose and Mouth. Neck: Full range of motion. No meningismus. Resp: Clear to auscultation bilaterally Cardio: Regular rate and rhythm, no murmurs. 2+ distal pulses equal in all 4 extremities Abd: Soft, non tender, non distended. Normal bowel sounds Skin: No petechiae or rashes Back: No midline or flank tenderness Ext: No cyanosis, or edema Neur: Awake and alert Psych: Normal Mood and Affect Result Diagram: 09/03/18 1455 09/03/18 1455 Results 24 hrs Laboratory Tests Test 09/03/18 14:55 White Blood Count 16.0 10^3/ul Red Blood Count 4.45 10^6/ul Hemoglobin 12.6 g/dl Hematocrit 37.5 % Mean Corpuscular Volume 84.3 fl Mean Corpuscular Hemoglobin 28.3 pg Mean Corpuscular Hemoglobin Concent 33.6 g/dl Red Cell Distribution Width 15.3 % Platelet Count 243 10^3/UL Mean Platelet Volume 9.7 fl Immature Granulocytes % 0.600 % Neutrophils % 79.0 % Lymphocytes % 15.1 % Monocytes % 4.4 % Eosinophils % 0.5 % Basophils % 0.4 % Nucleated Red Blood Cells % 0.0 /100WBC Immature Granulocytes # 0.090 10^3/ul Neutrophils # 12.7 10^3/ul Lymphocytes # 2.4 10^3/ul Monocytes # 0.7 10^3/ul Eosinophils # 0.1 10^3/ul Basophils # 0.1 10^3/ul Nucleated Red Blood Cells # 0.0 10^3/ul Sodium Level 137 mmol/L Potassium Level 3.5 mmol/L Chloride Level 103 mmol/L Carbon Dioxide Level 23 mmol/L Anion Gap 11 Blood Urea Nitrogen 15 mg/dl Creatinine 0.97 mg/dl Est Glomerular Filtrat Rate mL/min > 60 mL/min Glucose Level 254 mg/dl Calcium Level 9.7 mg/dl Troponin I < 0.012 ng/ml Current Medications Medications Dose Sig/Mike Start Time Status Last (Trade) Ordered Route PRN Stop Time Admin Dose Reason Admin Aspirin 162 mg ONCE STAT 09/03/18 DC 09/03/18 (Aspirin) PO 14:54 09/03/18 15:15 14:55 Ondansetron 4 mg ER BRIDGE 09/03/18 DC HCl (Zofran PRN IV 17:00 09/03/18 Inj) NAUSEA AND/OR 18:08 VOMITING 650 mg ER BRIDGE 09/03/18 DC Acetaminophen PRN PO MILD 17:00 09/03/18 (Tylenol PAIN(1-3)OR 18:08 Tab) ELEVATED TEMP Procedures/MDM EMERGENT LABS AND DIAGNOSTIC STUDIES: Lab Results above were reviewed and interpreted by me. CBC: Leukocytosis of unclear etiology, likely stress response. Of significant anemia CMP: Hyperglycemic. No evidence of electrolyte abnormality, acidosis, renal failure, hypoglycemia Troponin within normal limits, not indicative of cardiac ischemia 12-lead EKG was interpreted by Nevin Smart MD: Normal Sinus Rhythm Left axis deviation Normal intervals Possible hyper acute T waves. Abnormal EKG, no acute ST depressions or elevations suggestive of acute ischemia or STEMI. Radiology Results as interpreted by Radiology below were reviewed by SNakita Smart MD: Chest x-ray: No acute abnormalities Initial Nursing notes reviewed. Previous Medical Records requested via the Electronic Health Record. EMERGENCY DEPARTMENT COURSE / MEDICAL DECISION MAKING: Patient is presenting with chest pain that has now resolved. He is high risk for acute coronary syndrome so I recommended admission for observation and likely angiogram sooner. EKG showed possible hyperacute T waves but no evidence of STEMI. Patient remained asymptomatic while here. He was treated with aspirin. Troponin was negative. Decision was made to admit the patient. I spoke with the admitting doctor, Dr. Luis. The patient has made the decision to leave this Emergency Department and any ongoing care against the advice of the emergency physician. The patient has been informed of and verbalized understanding of the inherent risks of this decision, including , disability. The patient explained to me the reason for wanting to sign out against medical advice.The patient has the capacity to make this decision and accepts the responsibility of leaving at this time. The patient and all necessary parties have been advised that the patient may return at any time for further evaluation or treatment. The patient's condition at time of discharge is fair. Departure Diagnosis: Primary Impression: Chest pain Chest pain type: unspecified Qualified Codes: R07.9 - Chest pain, unspecified Condition: Serious ARLENE SMART MD Sep 03, 2018 21:50
[2018-09-05 16:40] VITALS: Ht 182.9 cm; Wt 73.0 kg
== END 2018-09-03 18:08 | disposition left against medical advice (07) ==
LOC: E/R 14:12 → CANRESERV 17:50 → E/R 18:08 → CANBEDREQ 09-04 08:49
DX: R07.9 Chest pain, unspecified (principal); I10 Essential (primary) hypertension; I25.10 Atherosclerotic heart disease of native coronary artery without angina pectoris; Z79.82 Long term (current) use of aspirin; Z79.84 Long term (current) use of oral hypoglycemic drugs; Z98.61 Coronary angioplasty status
CPT/HCPCS: 36415; 71045; 80048; 84484; 85025; 93005

== ENCOUNTER 2018-09-07 09:09 | Observation (INO) | payer MEDICARE, OTHER ==
[2018-09-07] VITALS (22 sets, daily range): BP systolic 122–165; BP diastolic 58–80; PULSE 48–63; RESP 15–22; Ht 177.8 cm; Wt 71.4 kg
[~2018-09-07] VITALS: Ht 177.8 cm; Wt 71.4 kg
[2018-09-07] MEDS ORDERED: LIDOCAINE 1% (MDV) 20 ML INJ ONE ×2 (10:54→11:34)
[2018-09-07] MEDS ORDERED: MIDAZOLAM 1 MG/ML 2 ML INJ ONE ×2 (10:54→11:34)
[2018-09-07] MEDS ORDERED: HEPARIN 1000 UNITS/ML 10 ML INJ ONE (10:54)
[2018-09-07] MEDS ORDERED: FENTAnyl 50 MCG/ML VIAL ONE ×2 (10:54→11:34)
[2018-09-07] MEDS ORDERED: IODIXANOL LOCM 100 ML BTL ONE (10:54)
[2018-09-07] MEDS ORDERED: NITROGLYCERIN (IC) 100 MCG/ML INJ ONE (10:55)
[2018-09-07] MEDS ORDERED: VERAPAMIL 5 MG INJ ONE (10:55)
[2018-09-07] MEDS ORDERED: DIPHENHYDRAMINE 50 MG CAP PO ONE (11:00)
[2018-09-07] MEDS ORDERED: FAMOTIDINE 20 MG TAB PO ONE (11:00)
[2018-09-07] MEDS ORDERED: DIAZEPAM 5 MG TAB PO ONE (11:00)
[2018-09-07] MEDS ORDERED: SOD CHLORIDE 0.45% 1,000 ML IV SCH (11:00)
[2018-09-07] MEDS ORDERED: BIVALIRUDIN 250MG /NS 50 ML 50 ML IVPB ONE (11:47)
[2018-09-07] MEDS ORDERED: IOHEXOL 350MG/ML 50 ML BTL ONE (11:56)
[2018-09-07] MEDS ORDERED: SOD CHLORIDE 0.9% 1,000 ML IV SCH (13:03)
--- NOTE | 2018-09-07 13:03 | SIPON ---
Date/Time of Note Date/Time of Note DATE: 09/07/18 TIME: 13:01 Operative Report Preoperative Diagnosis 1.angina Postoperative Diagnosis 1.obstructive cad s/p stent x 1 to PDA 2.s/p IVUS of PDA Operation/Procedure Performed 1.LHC 2.PTCA/stent x 1 to PDA/RCA 3.IVUS RCA/PDA Surgeon see signature line reference assistant 1.Elijah Anesthesia: moderate sedation Estimated blood loss: minimal Transfusion Required none Specimen none Grafts/Implants none Complications none ALPESH WELCH Sep 07, 2018 13:03
[2018-09-07] MEDS ORDERED: TICAGRELOR 90 MG TABLET ONE (13:17)
[2018-09-07] MEDS ORDERED: ZOLPIDEM 5 MG TAB PO PRN (13:30)
[2018-09-07] MEDS ORDERED: morphine SULFATE/PF (2 MG/2 ML) SYG IV PRN (13:30)
[2018-09-07] MEDS ORDERED: ONDANSETRON 4 MG INJ IV PRN (13:30)
[2018-09-07] MEDS ORDERED: ACETAMINOPHEN 325 MG TAB PO PRN (13:30)
[2018-09-07] MEDS ORDERED: OXYCODONE/ACETAMINOPHEN (5/325) TAB PO PRN (13:30)
[2018-09-07] MEDS ORDERED: AL HYDROX/MG HYDROX/SIMETH 30 ML CUP PO PRN (13:30)
--- NOTE | 2018-09-07 16:20 | HP ---
BAUDILIO MARIE 09/07/18 1618: Date/Time of Note Date/Time of Note DATE: 09/07/18 TIME: 16:07 Assessment/Plan VTE Prophylaxis Risk score (from Ns)>0 risk: 4 SCD applied (from Ns): Yes Pharmacological prophylaxis: other Lines/Catheters [facility]from [facility] Peripheral IV Urinary Cath still in place: No Assessment/Plan Assessment/Plan -Unstable angina, secondary to recurrent RCA/PDA stenosis, status post stent placement x1 to PDA/ RCA on 09/07/[address] Huynh. Admit to telemetry floor for observation. Continue aspirin and Brilinta. -History of coronary artery disease, history of multiple stent placement. status post PTCA/stent x 1 to PDA/RCA by Dr. Huynh on 01/05/18. -Active coronary artery disease, status post successful PTCA/stent x [address] Huynh in June 2017. History of PTCA to LCX in January 2016 and status post s/p PTCA/stent x 3 to RCA/PLB/PDA with MELISA in May 2017 -Hypertension -Hyperlipidemia -Diabetes mellitus type 2 Further recommendations based on clinical course. Plan of care discussed with Dr. Mcneil. Result Diagram: 09/07/18 0931 09/07/18 0932 Results 24hrs Laboratory Tests Test 09/07/18 09:31 09/07/18 09:32 09/07/18 09:40 White Blood Count 13.5 H Red Blood Count 4.49 L Hemoglobin 12.5 L Hematocrit 38.1 L Mean Corpuscular Volume 84.9 Mean Corpuscular Hemoglobin 27.8 L Mean Corpuscular Hemoglobin Concent 32.8 Red Cell Distribution Width 15.2 H Platelet Count 243 Mean Platelet Volume 9.6 Immature Granulocytes % 0.400 Neutrophils % 77.6 H Lymphocytes % 15.8 Monocytes % 4.9 Eosinophils % 0.8 Basophils % 0.5 Nucleated Red Blood Cells % 0.0 Immature Granulocytes # 0.050 H Neutrophils # 10.5 H Lymphocytes # 2.1 Monocytes # 0.7 Eosinophils # 0.1 Basophils # 0.1 Nucleated Red Blood Cells # 0.0 CBC Results Faxed/Phoned 1 *H Prothrombin Time 13.1 Prothrombin Time Ratio 1.0 INR International Normalized Ratio 0.98 Activated Partial Thromboplast Time 31.4 Sodium Level 138 Potassium Level 3.8 Chloride Level 104 Carbon Dioxide Level 22 Anion Gap 12 Blood Urea Nitrogen 13 Creatinine 1.04 Est Glomerular Filtrat Rate mL/min > 60 Glucose Level 130 Calcium Level 9.8 Total Bilirubin 0.6 Direct Bilirubin 0.00 Indirect Bilirubin 0.6 Aspartate Amino Transf (AST/SGOT) 24 Alanine Aminotransferase (ALT/SGPT) 17 Alkaline Phosphatase 81 Total Protein 7.8 Albumin 4.6 Globulin 3.20 Albumin/Globulin Ratio 1.43 Triglycerides Level 136 Cholesterol Level 149 LDL Cholesterol, Calculated 79 HDL Cholesterol 43 Cholesterol/HDL Ratio 3.4 Bedside Glucose 122 HPI/ROS Admit Date/Time Admit Date/Time Sep 07, 2018 at 13:07 Hx of Present Illness Patient is a 63-year-old gentleman with history of hypertension, hyperlipidemia and diabetes. Patient had coronary artery disease with extensive history of multiple stents placement, history of myocardial infarction in 2002, history of cardiomyopathy with decreased ejection fraction, and paroxysmal atrial fibrillation. Patient developed angina and was brought to emergency room on September 03 patient was given nitroglycerin with resolution symptoms and a left against medical advised. Patient follows with Dr. Huynh in cardiology co nsultation and was brought to the hospital and underwent left heart catheterization, and stent placement x1 to PDA/ RCA by Dr. Huynh. Patient is seen in recovery, remains hemodynamically stable denies any chest pain denies shortness of breath. Patient will be admitted for observation to telemetry floor. ROS 12 point review of system is negative unless what mentioned in HPI PMH/Family/Social Past Medical History Medical History: coronary artery disease, diabetes, high cholesterol, hypertension Medications Current Medications Miscellaneous Information (* Miscellaneous Pharmacy Order) Hold all Metformin ... ONCE XX ; Start 09/07/18 at 13:30; Stop 09/09/18 at 13:29 Aspirin (Halfprin) 81 mg DAILY PO ; Start 09/08/18 at 09:00 Ticagrelor (Brilinta) 90 mg BID PO ; Start 09/07/18 at 21:00 Acetaminophen (Tylenol Tab) 650 mg Q4H PRN PO pain; Start 09/07/18 at 13:30 Oxycodone/ Acetaminophen (Percocet (5/ 325)) 1 tab Q4H PRN PO PAIN LEVEL 4-6; Start 09/07/18 at 13:30 Morphine Sulfate (morphine SULFATE (PF)) 1 mg Q1H PRN IV PAIN LEVEL 7-10; Start 09/07/18 at 13:30 Zolpidem Tartrate (Ambien) 5 mg HS MAY REPEAT X 1 PRN PO INSOMNIA; Start 09/07/18 at 13:30 Al Hydrox/Mg Hydrox/Simethicone (Mag-Al Plus) 30 ml Q4H PRN PO GASTROINTESTINAL UPSET; Start 09/07/18 at 13:30 Ondansetron HCl (Zofran Inj) 4 mg Q4H PRN IV NAUSEA AND/OR VOMITING; Start 09/07/18 at 13:30 Sodium Chloride 1,000 ml @ 75 mls/hr [id number] IV ; Start 09/07/18 at 13:03; Stop 09/08/18 at 02:22 Coded Allergies: No Known Allergies (Verified Allergy, Unknown, 09/07/18) Past Surgical History Past Surgical Hx: other (Status post PTCA and multiple cardiac stent placement in the past) Family History Significant Family History: other (Father at a young age secondary to coronary artery disease. Brother had coronary artery disease and multiple PTCAs. Patient's mother with history of cancer) Social History Patient smokes marijuana occasionally Alcohol Use: none Smoking Status: Former smoker Drug Use: none Exam/Review of Systems Vital Signs Vitals Vital Signs Date Temp Pulse Resp B/P (MAP) Pulse Ox O2 O2 Flow FiO2 Time Delivery Rate 09/07/18 156/75 98 Room Air 14:53 (102) 09/07/18 58 14:38 09/07/18 98.3 13:38 Exam Constitutional: alert, oriented Head: normocephalic Eyes: nl conjunctiva ENMT: nl external ears & nose Neck: supple Respiratory: clear to auscultation Cardiovascular: regular rate and rhythm Gastrointestinal: soft, non-tender Musculoskeletal: nl extremities to inspection Extremities: normal pulses Neurological: nl mental status Skin: nl GLORY Cruz MD 09/17/18 1026: Assessment/Plan VTE Prophylaxis SCD applied (from Ns): Yes Assessment/Plan Result Diagram: 09/07/18 0931 09/07/18 0932 PMH/Family/Social Past Medical History Coded Allergies: No Known Allergies (Verified Allergy, Unknown, 09/07/18) BAUDILIO MARIE 9, 2019 16:18 GLORY MCNEIL MD Sep 17, 2018 10:26
[2018-09-07] MEDS: INSULIN ASPART [NOVOLOG] 3 ML PEN SC SCH ×2 (17:50→20:01)
[2018-09-07] MEDS: TICAGRELOR 90 MG TABLET PO SCH (20:01)
[2018-09-07] MEDS: METOPROLOL 25 MG TAB PO SCH (20:19)
[2018-09-07] MEDS ORDERED: TICAGRELOR 90 MG TABLET PO SCH (21:00)
[2018-09-07] MEDS ORDERED: ATORVASTATIN 40 MG TAB PO SCH (21:00)
[2018-09-08] VITALS (8 sets, daily range): BP systolic 121–175; BP diastolic 58–81; PULSE 57–69; RESP 18–19
[2018-09-08] MEDS ORDERED: PANTOPRAZOLE (EC) 40 MG TAB PO SCH (06:00)
[2018-09-08] MEDS ORDERED: DEXTROSE 50% 50 ML SYRINGE IV PRN ×2 (07:00)
[2018-09-08] MEDS ORDERED: GLUCOSE GEL 15 GRAM TUBE BUCCAL PRN (07:00)
[2018-09-08] MEDS ORDERED: GLUCAGON 1 MG INJ IM PRN (07:00)
[2018-09-08] MEDS ORDERED: GLUCOSE GEL 15 GRAM TUBE PO PRN ×2 (07:00)
[2018-09-08] MEDS ORDERED: metFORMIN 500 MG TAB PO SCH (07:55)
[2018-09-08] MEDS: INSULIN ASPART [NOVOLOG] 3 ML PEN SC SCH ×2 (07:55→11:50)
[2018-09-08] MEDS: TICAGRELOR 90 MG TABLET PO SCH (08:08)
[2018-09-08] MEDS: METOPROLOL 25 MG TAB PO SCH (08:10)
[2018-09-08] MEDS ORDERED: ASPIRIN (EC) 81 MG TAB PO SCH ×2 (09:00)
[2018-09-08] MEDS ORDERED: ISOSORBIDE MONONITRATE(SR)30 MG TAB PO SCH (09:00)
[2018-09-08] MEDS ORDERED: LISINOPRIL 20 MG TAB PO SCH (09:00)
[2018-09-08] MEDS ORDERED: AMLODIPINE 10 MG TAB PO SCH (09:00)
--- NOTE | 2018-09-08 12:58 | CARRPT ---
DATE OF PROCEDURE: 09/07/2018 TYPE OF PROCEDURES: 1. Left heart catheterization. 2. Coronary angiography. 3. Percutaneous transluminal coronary angioplasty with placement of Resolute drug-eluting stent 2.5 x 22 mm to mid RCA PDA. 4. Intravascular ultrasound of RCA PDA. 5. Moderate conscious sedation. ATTENDING PHYSICIAN: Alpesh Huynh MD REFERRING PHYSICIAN: Self-referred. INDICATION: Chest pain consistent with unstable angina. TYPE OF ANESTHESIA: Conscious and local. BRIEF HISTORY: Mr. Le a 63-year-old male with history of hypertension, dyslipidemia, coronary artery disease, status post prior PTCA and stent placement, most recently on 03/2018, who represented with complaints of substernal chest pain consistent with unstable angina. The patient was now brought to cardiac catheterization lab in order to assess for possibility of recurrent significant obstructive coronary artery disease and symptoms of chest pain and need for repeat left heart catheterization. DESCRIPTION OF PROCEDURE: After informed consent was obtained, the patient was brought to the [facility] cardiac catheterization lab where we initially attempted to gain access in the right radial artery. We were able to get a flashback but not able to pass a wire possibly due to spasm. Subsequently at this time using modified Seldinger technique, the right femoral artery was cannulated and a 6-Nauruan arterial sheath, a 6-Nauruan JL4 catheter was used to cannulate the left main coronary ostium. With contrast injection, multiple views of left coronary system were obtained. JL4 was removed over a guidewire and a JR4 was used to cannulate the right coronary arterial ostium. With contrast injection, multiple views of right coronary system were obtained. JR4 was removed over a guidewire and a pigtail has been used to cross the aortic valve and measure LVEDP and pullback across the aortic valve to assess for significant gradient, which there was not. Subsequently at this time, we moved directly to an interventional procedure. The patient had been given 25 units of heparin, now was given Angiomax bolus continuous infusion. A JR4 guide was used to cannulate the right coronary arterial ostium. A 0.014 Spool Sorter guidewire was passed distal to area of restenosis within the stent in the mid PDA and mild in- stent restenosis with bifurcation at PDA posterolateral branch. Subsequently at this time, we used a 2.5 x 50 mm balloon to predilate the lesion along its length and an area of moderate in-stent restenosis at the bifurcation. Due to watermelon seeding, this was removed and then we used 2-0 Noncompliant balloon x 10 and inflations were made throughout the length of the area of in-stent restenosis up to 16 to 18 atmospheres. This was upsized to 5 x 10 and once again inflations were made 16 to 18 atmospheres throughout the length to the in- stent restenotic lesion. Subsequently, this was removed and the lesion was now stented with a 2.5 x 22 mm drug-eluting stent deployed at 16 atmospheres post- dilated with the stent delivery system up to 18 atmospheres. The balloon was then used to do post inflations. Subsequently at this time, a Noncompliant 2.5 x 15 mm balloon was used to further post-dilate the length of the stent and even to the proximal portions of the bifurcation. This was removed and at this time intravascular ultrasound catheter was passed distal to the stent zone and intravessel ultrasound was performed revealing the stent to be well opposed and well expanded with a minimal lumen stent that is now about 2.25 to 2.5 in all sections. There was a section just proximal to the bifurcation where the stent looked mildly expanded and subsequently removed. A 3.0 x 15 mm Noncompliant balloon was used to further post-dilate the length of the PDA stent and into the bifurcation inflations up to 18 atmospheres and 20 atmospheres in the proximal portion. Subsequently, this was removed. Followup angiogram was obtained revealing excellent result, deployment of stent, YOGI 3 flow throughout the vessel. No signs of complication including perforation or dissection. Subsequently at this time, the initial guide and guidewires were removed. Subsequently at this time, the patient was given 180 mg of Brilinta reload and 325 mg of aspirin. This completed the procedure. There were no known complications. FINDINGS: Coronary angiography: Left main is 4 mm, short, no significant focal stenosis. LAD approximately is 3.5 mm vessel shortly after its takeoff had 20% stenosis. Remainder of the LAD thereafter is free from significant focal stenoses. There is mid branching and diagonal at 2 mm, no significant focal stenosis. The circ proximally is a 2.5 mm vessel and has mild to moderate in- stent restenosis falling to approximately 50% and its mid branching obtuse marginal is 2 mm, no significant focal stenoses and circ continuation AV groove which is free of focal stenosis. The patient's right coronary proximally is a 3.5 mm vessel, has a 30% stenosis shortly after its takeoff and just the bifurcation and the stented zone, there is in-stent restenosis approximately 60% and then in the PDA bifurcation, there is in-stent restenosis at approximately 80% to 90%. The posterolateral branch was stented and has mild in-stent restenosis at approximately 10% to 20%. PTCA and stent placement: Prior to PTCA and stent placement, the patient had an 80% to 90% in-stent stenotic region and in region proximal to this with 60% to 70% in-stent restenosis. Post-PTCA and stent placement, the patient had no residual stenosis, YOGI 3 flow throughout the vessel. No signs of complication including perforation or dissection in any region. Measurement of LVEDP of 16 to 18. TOTAL FLUOROSCOPY TIME: 21.5 minutes. TOTAL CONTRAST: 110 mL. IMPRESSION: Single vessel obstructive coronary artery disease involving in- stent restenotic lesion in the patient's PDA and just proximal to the PDA/PLB bifurcation, status post successful PTCA and stent placement x1 to stenotic region and PTCA alone in the bifurcation. RECOMMENDATIONS: In light of procedure findings at this time, we would: 1. Maintain the patient on Brilinta 90 mg 1 tab p.o. b.i.d. 2. Aspirin 81 mg 1 tab p.o. daily. 3. Maximize medical management. 4. Aggressive risk factor reduction. 5. The patient will be readmitted to the same day surgery center for post catheterization observation and continued management of symptoms with probable discharge the following day. Dictated By: ALPESH HOPSON/DAISY Conf#: [id number] DID#: [id number] NEREYDA
--- NOTE | 2018-09-08 15:04 | CONS ---
Date/Time of Note Date/Time of Note DATE: 09/08/18 TIME: 14:59 Assessment/Plan Assessment/Plan Hospital Course IMP: 1.POD#1 s/p stent x 1 to RCA/PDA 2.Angina-secondary to recurrent RCA/PDA stenosis 3.HTN 4.HL 5. ? hematuria Recc: -Tele -ambulate patient and if no sig chest pain/leg pain/sob then ok for d/c with outpatient f/u -Continue brilinta/asa -outpatient f/u scheduled this upcoming wednesday -Continue BB/CCB/oral nitrates -Continue baseline hydralazine/ACEI -F/U UA and assure sent prior to d/c Result Diagram: 09/08/1862509/08/18625 Results 24hrs Laboratory Tests Test 09/07/18 17:47 09/07/18 20:16 09/08/18 06:26 09/08/18 07:54 Bedside Glucose 121 116 100 White Blood Count 10.9 H Red Blood Count 4.32 L Hemoglobin 12.2 L Hematocrit 36.3 L Mean Corpuscular 84.0 Volume Mean Corpuscular 28.2 L Hemoglobin Mean Corpuscular 33.6 Hemoglobin Concent Red Cell Distribution 15.3 H Width Platelet Count 197 Mean Platelet Volume 9.9 Immature Granulocytes 0.500 H % Neutrophils % 75.0 Lymphocytes % 16.2 Monocytes % 6.0 Eosinophils % 1.9 Basophils % 0.4 Nucleated Red Blood 0.0 Cells % Immature Granulocytes 0.050 H # Neutrophils # 8.1 H Lymphocytes # 1.8 Monocytes # 0.7 Eosinophils # 0.2 Basophils # 0.0 Nucleated Red Blood 0.0 Cells # Sodium Level 140 Potassium Level 3.7 Chloride Level 106 Carbon Dioxide Level 22 Anion Gap 12 Blood Urea Nitrogen 17 Creatinine 0.99 Est Glomerular > 60 Filtrat Rate mL/min Glucose Level 104 Calcium Level 9.3 Test 09/08/18 12:04 Bedside Glucose 112 Consultation Date/Type/Reason Admit Date/Time Sep 07, 2018 at 13:07 Initial Consult Date 09/07/18 Type of Consult cardiology Reason for Consultation angina Requesting Provider: GLORY MCNEIL MD Exam/Review of Systems Vital Signs Vitals Vital Signs Date Temp Pulse Resp B/P (MAP) Pulse Ox O2 O2 Flow FiO2 Time Delivery Rate 09/08/18 60 12:00 09/08/18 98.3 19 150/73 97 11:32 (98) 09/07/18 Room Air 16:45 Intake and Output 09/07/18 09/07/18 09/08/18 1414:59 22:59 06:59 IntakeIntake Total 400 ml OutputOutput Total 250 ml 400 ml BalanceBalance -250 ml -400 ml 400 ml Exam Review of Systems: CONSTITUTIONAL: No fevers, chills. PULMONARY: No sob CARDIOVASCULAR: No chest pain/palpitations GASTROINTESTINAL: No nausea/vomiting. GENITOURINARY: No hematuria/dysuria. MUSCULOSKELETAL: No myagias/arthalgias. PSYCHIATRIC: The patient denies depression. NEUROLOGIC: No weakness Constitutional: alert, oriented Psych: no complaints Head: normocephalic ENMT: mucosa pink and moist Neck: supple, jvd (9 cm water) Respiratory: diminished breath sounds Cardiovascular: regular rate and rhythm Gastrointestinal: soft, non-tender Genitourinary - Male: other (R groin no sig bleeding/swelling/ecchymosis) Musculoskeletal: muscle tone (normal) Extremities: edema (none) Medications Medications Current Medications Miscellaneous Information (* Miscellaneous Pharmacy Order) Hold all Metformin ... ONCE XX ; Start 09/07/18 at 13:30; Stop 09/09/18 at 13:29 Aspirin (Halfprin) 81 mg DAILY PO Last administered on 09/08/18at 08:06; Admin Dose 81 MG; Start 09/08/18 at 09:00 Ticagrelor (Brilinta) 90 mg BID PO Last administered on 09/08/18at 08:08; Admin Dose 90 MG; Start 09/07/18 at 21:00 Acetaminophen (Tylenol Tab) 650 mg Q4H PRN PO pain; Start 09/07/18 at 13:30 Oxycodone/ Acetaminophen (Percocet (5/ 325)) 1 tab Q4H PRN PO PAIN LEVEL 4-6; Start 09/07/18 at 13:30 Morphine Sulfate (morphine SULFATE (PF)) 1 mg Q1H PRN IV PAIN LEVEL 7-10; Start 09/07/18 at 13:30 Zolpidem Tartrate (Ambien) 5 mg HS MAY REPEAT X 1 PRN PO INSOMNIA; Start 09/07/18 at 13:30 Al Hydrox/Mg Hydrox/Simethicone (Mag-Al Plus) 30 ml Q4H PRN PO GASTROINTESTINAL UPSET; Start 09/07/18 at 13:30 Ondansetron HCl (Zofran Inj) 4 mg Q4H PRN IV NAUSEA AND/OR VOMITING; Start 09/07/18 at 13:30 Amlodipine Besylate (Norvasc) 10 mg DAILY PO Last administered on 09/08/18at 08:08; Admin Dose 10 MG; Start 09/08/18 at 09:00 Atorvastatin Calcium (Lipitor) 40 mg QHS PO Last administered on 09/07/18at 20:18; Admin Dose 40 MG; Start 09/07/18 at 21:00 Hydralazine HCl (Apresoline) 25 mg BID PO Last administered on 09/08/18at 08:08; Admin Dose 25 MG; Start 09/07/18 at 21:00 Isosorbide Mononitrate (Imdur) 30 mg DAILY PO Last administered on 09/08/18at 08:07; Admin Dose 30 MG; Start 09/08/18 at 09:00 Lisinopril (Zestril) 40 mg DAILY PO Last administered on 09/08/18at 08:08; Admin Dose 40 MG; Start 09/08/18 at 09:00 Metformin HCl (Glucophage) 500 mg WITH BREAKFAST PO ; Start 09/08/18 at 07:55 Metoprolol Tartrate (Lopressor) 12.5 mg BID PO ; Start 09/07/18 at 21:00 Pantoprazole (Protonix Tab) 40 mg DAILY@06 PO Last administered on 09/08/18at 06:29; Admin Dose 40 MG; Start 09/08/18 at 06:00 Insulin Aspart (Novolog Insulin Pen) NOVOLOG *MILD* ALGORITHM WITH MEALS BEDTIME SC ; Start 09/07/18 at 17:55 Miscellaneous Information 1 ea NOTE XX ; Start 09/08/18 at 07:00 Glucose (Glutose) 15 gm Q15M PRN PO DECREASED GLUCOSE; Start 09/08/18 at 07:00 Glucose (Glutose) 22.5 gm Q15M PRN PO DECREASED GLUCOSE; Start 09/08/18 at 0 7:00 Dextrose (D50w Syringe) 25 ml Q15M PRN IV DECREASED GLUCOSE; Start 1/10/19 at 07:00 Dextrose (D50w Syringe) 50 ml Q15M PRN IV DECREASED GLUCOSE; Start 09/08/18 at 07:00 Glucagon (Glucagen) 1 mg Q15M PRN IM DECREASED GLUCOSE; Start 09/08/18 at 07:00 Glucose (Glutose) 15 gm Q15M PRN BUCCAL DECREASED GLUCOSE; Start 09/08/18 at 07:00 ALPESH WELCH Sep 08, 2018 15:03
--- NOTE | 2018-09-10 01:50 | RADRPT ---
Vent Rate: 56 bpm RR Interval: 0 msec [place] Interval: 146 msec QRS Duration: 108 msec QT Interval: 456 msec QTC Interval: 440 msec P-R-T [place]: 59 - -36 - 77 degrees Sinus bradycardia Left axis deviation Abnormal ECG Electronically Signed By: Kirill Zaman [id number]
--- NOTE | 2018-09-10 01:53 | RADRPT ---
Vent Rate: 58 bpm RR Interval: 0 msec ME Interval: 156 msec QRS Duration: 106 msec QT Interval: 424 msec QTC Interval: 416 msec P-R-T [place]: 54 - -62 - 76 degrees Sinus bradycardia Left anterior fascicular block Abnormal ECG Electronically Signed By: Kirill Zaman [id number]
--- NOTE | 2018-09-18 21:58 | DS ---
Date/Time of Note Date/Time of Note DATE: 09/18/18 TIME: 21:56 Discharge Summary Admission/Discharge Info Admit Date/Time Sep 07, 2018 at 13:07 Discharge Date/Time Sep 08, 2018 at 16:05 Patient Condition: Stable Hx of Present Illness Patient is a 63-year-old gentleman with history of hypertension, hyperlipidemia and diabetes. Patient had coronary artery disease with extensive history of multiple stents placement, history of myocardial infarction in 2002, history of cardiomyopathy with decreased ejection fraction, and paroxysmal atrial fibrillation. Patient developed angina and was brought to emergency room on September 03 patient was given nitroglycerin with resolution symptoms and a left against medical advised. Patient follows with Dr. Huynh in cardiology consultation and was brought to the hospital and underwent left heart catheterization, and stent placement x1 to PDA/ RCA by Dr. Huynh. Patient is seen in recovery, remains hemodynamically stable denies any chest pain denies shortness of breath. Patient will be admitted for observation to telemetry floor. Hospital Course -Unstable angina, secondary to recurrent RCA/PDA stenosis, status post stent placement x1 to PDA/ RCA on 09/07/[address] Huynh. Continue aspirin and Brilinta. -History of coronary artery disease, history of multiple stent placement. status post PTCA/stent x 1 to PDA/RCA by Dr. Huynh on 01/05. Continue aspirin and Brilinta. -Active coronary artery disease, status post successful PTCA/stent x [address] Huynh in June 2017. History of PTCA to LCX in January 2016 and status post s/p PTCA/stent x 3 to RCA/PLB/PDA with MELISA in May 2017 -Hypertension -Hyperlipidemia -Diabetes mellitus type 2 Plan of care discussed with Dr. Luis. Home Meds Reported Medications Isosorbide Mononitrate* (Isosorbide Mononitrate*) 30 Mg Tab.er.24h, 30 MG PO DAILY, TAB 01/05/18 Metoprolol Tartrate* (Lopressor*) 25 Mg Tab, 12.5 MG PO BID, #60 TAB 01/05/18 Omeprazole* (Omeprazole*) 20 Mg Capsule.dr, 20 MG PO DAILY, #30 CAP 01/05/18 Atorvastatin* (Atorvastatin*) 40 Mg Tablet, 40 MG PO QHS, #30 TAB 01/05/18 Amlodipine Besylate* (Amlodipine Besylate*) 10 Mg Tablet, 10 MG PO DAILY, #30 TAB 01/05/18 Aspirin (Low Dose Aspirin) 81 Mg Tablet.dr, 81 MG PO DAILY, #30 TAB 07/29/17 Hydralazine Hcl* (Hydralazine Hcl*) 25 Mg Tab, 25 MG PO BID, #120 TAB 07/29/17 Ticagrelor* (Brilinta*) 90 Mg Tablet, 90 MG PO Q12, TAB 07/29/17 Lisinopril* (Lisinopril*) 40 Mg Tablet, 40 MG PO DAILY, #30 TAB 07/29/17 Follow-up Plan Follow-up with Dr. Huynh in 2 weeks, may restart metformin a day after tomorrow. Primary Care Provider Not On Staff Doctor Time spent on discharge: > 30 minutes BAUDILIO MARIE Sep 18, 2018 21:58
== END 2018-09-08 16:05 | disposition home or self-care (01) ==
LOC: SDS 09:09 → CCL 09:09 → REC 13:07 → TEL 17:05
PROVIDERS: ADMIT Internal Medicine; ATTEND Internal Medicine
DX: I25.110 Atherosclerotic heart disease of native coronary artery with unstable angina pectoris (principal); I10 Essential (primary) hypertension; E78.5 Hyperlipidemia, unspecified; Z95.5 Presence of coronary angioplasty implant and graft; E11.9 Type 2 diabetes mellitus without complications
CPT/HCPCS: 80048; 80053; 80061; 81001; 82962; 85025; 85610; 85730; 87086; 92978; 93005; 93458; C1725; C1760; C1887; C1894; C9600; G0378; J0583; J1644; J1815; J2250; J3010; Q9967; 99217

== ENCOUNTER 2018-10-18 10:38 | Day surgery (SDC) | payer MEDICARE, OTHER ==
[2018-10-18] VITALS (20 sets, daily range): BP systolic 103–144; BP diastolic 56–75; PULSE 50–68; RESP 16–28; Ht 177.8 cm; Wt 73.0 kg
[~2018-10-18] VITALS: Ht 177.8 cm; Wt 73.0 kg
[~2018-10-18 10:38] MED LIST changes: -METF500T24 PO
[2018-10-18] MEDS ORDERED: METF500T24 PO (11:14)
[2018-10-18] MEDS ORDERED: ISOS60TA PO (11:14)
[2018-10-18] MEDS ORDERED: SOD CHLORIDE 0.45% 1,000 ML IV SCH (11:30)
[2018-10-18] MEDS ORDERED: DIAZEPAM 5 MG TAB PO SCH (11:30)
[2018-10-18] MEDS ORDERED: DIPHENHYDRAMINE 50 MG CAP PO SCH (11:30)
[2018-10-18] MEDS ORDERED: FAMOTIDINE 20 MG TAB PO SCH (11:30)
[2018-10-18] MEDS ORDERED: IODIXANOL LOCM 100 ML BTL ONE (12:49)
[2018-10-18] MEDS ORDERED: LIDOCAINE 1% (MDV) 20 ML INJ ONE (12:49)
[2018-10-18] MEDS ORDERED: VERAPAMIL 5 MG INJ ONE (12:52)
[2018-10-18] MEDS ORDERED: MIDAZOLAM 1 MG/ML 2 ML INJ ONE (12:52)
[2018-10-18] MEDS ORDERED: FENTAnyl 50 MCG/ML VIAL ONE (12:52)
[2018-10-18] MEDS ORDERED: NITROGLYCERIN (IC) 100 MCG/ML INJ ONE (12:52)
[2018-10-18] MEDS ORDERED: HEPARIN 1000 UNITS/ML 10 ML INJ ONE (12:52)
[2018-10-18] MEDS ORDERED: SOD CHLORIDE 0.9% 1,000 ML IV SCH (13:47)
--- NOTE | 2018-10-18 13:47 | SIPON ---
Date/Time of Note Date/Time of Note DATE: 10/18/18 TIME: 13:47 Operative Report Preoperative Diagnosis 1.Chest pain Postoperative Diagnosis 1.Patent PDA/PLB/LCX stents Operation/Procedure Performed 1.[facility] Surgeon see signature line surgical dental assistant 1.Calixto Anesthesia: moderate sedation Estimated blood loss: minimal Transfusion Required none Specimen none Grafts/Implants none Complications none ALPESH WELCH Oct 18, 2018 13:47
[2018-10-18] MEDS ORDERED: ACETAMINOPHEN 325 MG TAB PO PRN (14:00)
[2018-10-18] MEDS ORDERED: AL HYDROX/MG HYDROX/SIMETH 30 ML CUP PO PRN (14:00)
[2018-10-18] MEDS ORDERED: ONDANSETRON 4 MG INJ IV PRN (14:00)
[2018-10-18] MEDS ORDERED: morphine 2 MG INJ IV PRN (14:00)
--- NOTE | 2018-10-18 15:17 | CARRPT ---
DATE OF PROCEDURE: 10/18/2018 TYPE OF PROCEDURES: 1. Left heart catheterization. 2. Coronary angiography. 3. Left ventriculogram. 4. Moderate conscious sedation. ATTENDING PHYSICIAN: Alpesh Huynh MD REFERRING PHYSICIAN: Self-referred. INDICATION: Chest pain, recent stenting, need for surgery. TYPE OF ANESTHESIA: Conscious and local. BRIEF HISTORY: Mr. Le is a 63-year-old male with history of hypertension, dyslipidemia, coronary ar sosa disease, status post recurrent stents to circumflex, PDA and posterolateral branch right coronar y artery with a recent NSTEMI stenosis and recurrent occlusion of PDA status post ENGINEERING GEOLOGIST and stent place ment, now presenting with chest pain in a preoperative state. DESCRIPTION OF PROCEDURE: After informed consent was obtained, the patient was brought to the [facility] catheterization lab where his left radial area was prepped and draped in sterile fashion, 2% lidoca ine was then infiltrated in the left radial area to achieve adequate anesthesia. Using the modified Seldinger technique, the left radial artery was cannulated and a 6-[place] sheath was placed. A 6-Len count includes the [facility] JL3.5 catheter was used to cannulate the left main coronary ostium, with contract injection, mult iple views of the left coronary system were obtained. A JL3.5 guidewire and a JR4 was used to cannul ate the right coronary arterial ostium with contrast injection and multiple views of the right penaloza ry system were obtained. JL4 guidewire and a 6-[place] pigtail was passed down the ascending aorta pl aced in LV. LVEDP was measured then a power injector was used to perform left ventriculogram and the n pullback across the aortic valve to assess for significant gradient, which there was not and remove d. So at this time, this completed the procedure. The patient's sheath was removed. TR band was ap plied. There were no noted complications. FINDINGS: 1. Coronary angiography: Left main short 4 mm, no significant stenoses. Circumflex proximally is a 3 mm vessel, has a stent which is patent in its portion, there is in-stent restenosis approximately 50% diffusely throughout the entire stent. This leads into a circ continuation AV groove has an osti al 50% stenosis. There is a very small obtuse marginal sub 2 mm vessel with ostial 60% to 70% stenos is. The LAD proximally is a 3.5 mm vessel and has a 34% stenosis in its mid portion followed by anot her 40% stenosis in its mid portion and then the LAD does start short of the apex, probably diffuse d isease. There is a mid-branching distal branching diagonal, each 2 mm vessels with no significant fo kathy stenoses. The right coronary artery proximally is a 3.5 mm vessel and has a midbody stent with i n-stent restenosis risk calculation of approximately 30 to 40%. The PDA is a widely patent vessel wi th no significant in-stent restenosis. The posterolateral branch is a patent vessel which has a miranda nt stent in some ostial in-stent restenosis and then a midbody in-stent restenosis up to approximatel y 70%. 2. Left ventriculogram revealed left ventricular ejection fraction approximately 45% with anterolate ral hypokinesis, moderate. LVEDP of 20, 1+ mitral regurgitation, no significant aortic stenosis by rylee gould. TOTAL FLUOROSCOPY TIME: 4.7 minutes. TOTAL CONTRAST: 40 mL. IMPRESSION: 1. Single vessel obstructive coronary artery disease involving in-stent restenosis of the posterolat eral branch, but with still excellent flow in a patient that is preoperative for a bladder cancer res ection. 2. Widely patent PDA stent. 3. Moderate in-stent restenosis to circumflex stents. 4. Mildly depressed left ventricular systolic function with wall motion abnormality as above. 5. Mildly elevated left heart filling pressures. 6. No severe stenosis by gradient. 7. 1+ mitral regurgitation. RECOMMENDATIONS: In light of procedure and findings at this time would: 1. Maintain patient on maximal medical therapy including dual antiplatelet therapy. 2. Retroflex reduction. 3. The patient will be discharged to outpatient followup and we will discuss with the patient's dipti vasquez urologist about timing of resection of bladder tumor. Dictated By: ALPESH HOPSON/NTS Conf#: [id number] DID#: [id number] CC: GLORY MCNEIL MD;*EndCC*
== END 2018-10-18 16:49 | disposition home or self-care (01) ==
LOC: SDS 10:38
PROVIDERS: ATTEND Internal Medicine
DX: I25.10 Atherosclerotic heart disease of native coronary artery without angina pectoris (principal); I10 Essential (primary) hypertension; E78.5 Hyperlipidemia, unspecified; I25.2 Old myocardial infarction
CPT/HCPCS: 80048; 80061; 82962; 85025; 85610; 85730; 93005; 93458; C1887; J1644; J2250; J3010; Q9967

== ENCOUNTER 2019-01-31 11:03 | Day surgery (SDC) | payer MEDICARE, BC, MEDICAID ==
[~2019-01-31] VITALS: Ht 157.5 cm; Wt 65.4 kg
[2019-01-31] VITALS (22 sets, daily range): BP systolic 99–153; BP diastolic 58–80; PULSE 50–63; RESP 12–26; Ht 157.5 cm; Wt 65.4 kg
[~2019-01-31 11:03] MED LIST changes: -ISOS30TA67 PO; +ISOS60TA PO; +METF500T24 PO
[2019-01-31] MEDS ORDERED: DIAZEPAM 5 MG TAB PO ONE (12:30)
[2019-01-31] MEDS ORDERED: LIDOCAINE 1% (MDV) 20 ML INJ ONE ×2 (12:30→13:02)
[2019-01-31] MEDS ORDERED: DIPHENHYDRAMINE 50 MG CAP PO ONE (12:30)
[2019-01-31] MEDS ORDERED: FAMOTIDINE 20 MG TAB PO ONE (12:30)
[2019-01-31] MEDS ORDERED: IODIXANOL LOCM 100 ML BTL ONE ×2 (12:30→13:03)
[2019-01-31] MEDS ORDERED: HEPARIN 1000 UNITS/ML 10 ML INJ ONE (13:02)
[2019-01-31] MEDS ORDERED: MIDAZOLAM 1 MG/ML 2 ML INJ ONE ×2 (13:03→14:05)
[2019-01-31] MEDS ORDERED: FENTAnyl 50 MCG/ML VIAL ONE ×2 (13:03→14:17)
[2019-01-31] MEDS ORDERED: SOD CHLORIDE 0.9% 500 ML ONE (13:34)
[2019-01-31] MEDS ORDERED: BIVALIRUDIN 250MG /NS 50 ML 50 ML IVPB ONE (13:34)
[2019-01-31] MEDS ORDERED: niCARdipine 25 MG INJ ONE (13:58)
[2019-01-31] MEDS ORDERED: NITROGLYCERIN (IC) 100 MCG/ML INJ ONE (14:19)
[2019-01-31] MEDS ORDERED: TICAGRELOR 90 MG TABLET ONE (14:34)
[2019-01-31] MEDS ORDERED: SOD CHLORIDE 0.9% 1,000 ML IV SCH (15:26)
--- NOTE | 2019-01-31 15:26 | SIPON ---
Date/Time of Note Date/Time of Note DATE: 01/31/19 TIME: 15:24 Operative Report Preoperative Diagnosis 1.Angina-unstable Postoperative Diagnosis 1.Obstructive cad s/p stent x 1 to RCA/PDA 2.5x 24MM MELISA Operation/Procedure Performed 1.s/p stent x 1 to RCA/PDA with MELISA x 1 Surgeon see signature line assistant track and field coach 1.Elijah Anesthesia: moderate sedation Estimated blood loss: minimal Transfusion Required none Specimen none Grafts/Implants none Complications none ALPESH WELCH Jan 31, 2019 15:26
[2019-01-31] MEDS ORDERED: OXYCODONE/ACETAMINOPHEN (5/325) TAB PO PRN (15:30)
[2019-01-31] MEDS ORDERED: ZOLPIDEM 5 MG TAB PO PRN (15:30)
[2019-01-31] MEDS ORDERED: morphine 2 MG INJ IV PRN (15:30)
[2019-01-31] MEDS ORDERED: ACETAMINOPHEN 325 MG TAB PO PRN (15:30)
[2019-01-31] MEDS ORDERED: ONDANSETRON 4 MG INJ IV PRN (15:30)
[2019-01-31] MEDS ORDERED: AL HYDROX/MG HYDROX/SIMETH 30 ML CUP PO PRN (15:30)
[2019-01-31] MEDS: INSULIN ASPART [NOVOLOG] 3 ML PEN SC SCH ×2 (18:00→21:00)
[2019-01-31] MEDS ORDERED: GLUCAGON 1 MG INJ IM PRN (19:30)
[2019-01-31] MEDS ORDERED: GLUCOSE GEL 15 GRAM TUBE BUCCAL PRN (19:30)
[2019-01-31] MEDS ORDERED: DEXTROSE 50% 50 ML SYRINGE IV PRN ×2 (19:30)
[2019-01-31] MEDS ORDERED: GLUCOSE GEL 15 GRAM TUBE PO PRN ×2 (19:30)
[2019-01-31] MEDS: TICAGRELOR 90 MG TABLET PO SCH (20:39)
[2019-01-31] MEDS: METOPROLOL 25 MG TAB PO SCH (20:42)
[2019-01-31] MEDS ORDERED: ATORVASTATIN 40 MG TAB PO SCH (21:00)
--- NOTE | 2019-01-31 22:05 | CARRPT ---
DATE OF PROCEDURE: 01/31/2019 TYPE OF PROCEDURES: 1. Left heart catheterization. 2. Coronary angiography. 3. Percutaneous transluminal coronary angioplasty with placement of Synergy drug-eluting stent x1 to PDA, 2.5 x 24 mm. 4. Moderate conscious sedation. ATTENDING PHYSICIAN: Alpesh Huynh MD REFERRING PHYSICIAN: Self-referred. INDICATION: Unstable angina. BRIEF HISTORY AND HOSPITAL COURSE: Mr. Le is a 63-year-old male with a history of hypertension, dys lipidemia, coronary artery disease, status post prior PTCA and stent placement multiple times to [facility] t coronary artery, PDA, circumflex who had bladder carcinoma status post chemotherapy and resection o f bladder cancer, presented with complaints of recurrent substernal chest pain consistent with unstab le angina and therefore brought to cardiac rn cardiac cath in order to assess the possibility of significant obstructive coronary artery disease leading to symptoms of chest pain. PROCEDURE: After informed consent was obtained, the patient was brought to the [facility] cardiac catheterization lab where his right and left groin was prepped and draped in the ster ile fashion, 2% lidocaine was infiltrated in the right groin in order to achieve adequate anesthesia. Using the modified Seldinger technique, the patient's right femoral artery was cannulated and a 6-F rench arterial sheath was placed. A 6-[place] JL4 catheter was used to cannulate the left main penaloza ry ostium. With contrast injection, multiple views of the left coronary arterial system were obtaine d. JL4 was removed over a guidewire and a JR4 was used to cannulate the right coronary arterial osti um. With contrast injection, multiple views of the right coronary arterial system were obtained. JR 4 was removed over a guidewire and a 6-[place] pigtail was passed down the ascending aorta, placed in LV. LVEDP was measured and pullback across the aortic valve to assess for significant gradient. At this time, we moved directly, entered the procedure. A JR4 guide was used to cannulate the right cor onary arterial ostium. With contrast injection, multiple views of this vessel were obtained. Subseq uently at this time, findings were high-grade recurrent PDA stenosis. We used a balanced weight guid ewire to pass distal to the lesion. At this time, we attempted to cross the patient's posterolateral branch additionally unsuccessfully with first a balanced weight guidewire then a Tanker Truck Driver 50 then final ly a Tanker Truck Driver 200. Subsequently, at this time as he has very high-grade stenosis of the PDA which he gay d before with angioplasty to the PDA and the wire was removed from attempting to cross into the poste rolateral branch subsequently, and the lesion was pretreated with a 2.5 x 12 mm balloon. After infla tion of x2 inflations, the patient had significant chest pain. Angiograms were obtained revealing a downstream embolization and a cut off in this part of the vessel continues with a thrombotic emboliza tion and occlusion. Subsequently, we were able to give aliquots of nicardipine 200 mcg at that time until patient had complete return of flow and daughtered a balloon through the distal port's circulat ion as well and a pullback with followup angiographic images that was obtained revealing complete terrell w throughout the distal circulation. At this time, the lesion was stented with a 2.5 x 24 mm drug-el uting stent deployed at 16 atmospheres, post-dilated it with the stent delivery system at 18 atmosphe res. The stent delivery system was removed, and at this time, we used a 2.75 x 12 mm noncompliant ba lloon to further post-dilate the stent throughout its entirety in the proximal portion of the stents and just prior to the distal bifurcation up to 20 atmospheres. This was removed and now using oversi zed 3-0 noncompliant balloon to further post-dilate the stented zone thought it was fully up to 18 at mospheres. This was removed. Followup angiogram was obtained with excellent placement of stent, RAOUL I flow throughout this vessel, no signs of ongoing distal embolization and no signs of perforation or dissection. At this time, we then attempted to pass a Fielder FC into the posterolateral branches, this proved unsuccessful. Subsequently, and due to contrast load and the patient's radiation dose, negrito mcgrath decided to stop the procedure at this time. The patient's wire was removed. The patient underwent a final angiographic image of the right femoral arterial insertion site revealing the sheath to be w ell placed in the right common femoral artery, which was sealed with a 6-[place] Perclose device compl eting the procedure. There were no noted complications. FINDINGS: 1. Coronary angiography: Left main 4 mm, no significant focal stenoses. LAD proximally is a 3.5 mm vessel and has a midbody 30% stenosis. The remainder of the LAD after that is free from significant focal stenoses. The patient's circumflex vessel proximally is a 3 mm vessel and has an instent rest enosis that has approximately 50% to 60% deficit zone. The obtuse marginal branch has a little bit o f a tubular stenosis up to approximately 30% or 40%. The circumflex AV groove is free from focal melissa noses. The right coronary artery proximally is a 3.5 mm vessel, has an approximately 40% stenosis an d then as it gives to the distal portion, there is a stent just at the bend which has instent resteno sis of approximately 20%. The patient's PDA has a long stented zone which was widely patent until th e midportion of the stent approximately and there is a high-grade stenosis of approximately 90%. The posterolateral branch is a 2.25 mm vessel and has a stent in its proximal portion which is patent an d has instent restenosis at this portion of about 70% to 80% and still has a good flow. Patent circumflex and prior PTCA and stent placement within the patient's posterolateral branch, he h ad a 90% stenosis. Post-PTCA and stent placement, the patient had no residual stenosis, YOGI 3 flow throughout its vessel, no signs of complication including perforation or dissection. Subsequently, a t this time, the patient have been given additional IC nitroglycerin and nicardipine, followup ascert ained once again revealing excellent result and no signs of complication. The patient's guidewires a nd guide were removed. Final angiographic image of the right femoral arterial insertion site was the n obtained revealing the sheath to be well placed in the right common femoral artery. Subsequently, a 6-[place] Perclose device was used to seal the vessel, completing the procedure. There were no note d complications. FINDINGS: 1. Coronary angiography: Right coronary artery approximately 3.5 mm vessel and is free of significa nt focal stenoses subsequent in its distal portion and it is free of significant focal stenoses to ge t to the PDA where there is a high grade 90% stenosis. In the midportion of the stented zone, the pa tient's posterolateral branch is a 2.25 mm vessel and the stent in its proximal portion with instent restenosis that is approximately 70%. TOTAL FLUOROSCOPY TIME: 26 minutes. TOTAL CONTRAST: 210 mL. IMPRESSION: A single vessel obstructive coronary artery disease involving high-grade stenosis of the patient's posterior PDA, instent restenotic lesion, status successful percutaneous transluminal krista nary angioplasty and stent placement x1 and additionally a branch of the right coronary artery and po sterolateral branch with a significant instent restenosis, not intervened upon today due to contrast load and radiation dose. RECOMMENDATIONS: 1. At this time, patient will be maintained on aspirin 81 mg 1 tab p.o. daily and Brilinta 90 mg 1 t ab p.o. b.i.d. 2. The patient will be admitted to ICU for postcatheterization and continued management of symptoms. 3. The patient will be discussed the possibility of a staged procedure to intervene upon the postero lateral branch versus discharge with readmit for a procedure at a later date. Dictated By: ALPESH HOPSON/DAISY Conf#: [id number] DID#: [id number] CC: GLORY MCNEIL MD;*End*
[2019-02-01] VITALS (15 sets, daily range): BP systolic 117–148; BP diastolic 63–101; PULSE 49–69; RESP 9–23
--- NOTE | 2019-02-01 01:53 | HP ---
DATE OF ADMISSION: 01/31/2019 CHIEF COMPLAINT: Recurrent chest pain. HISTORY OF PRESENT ILLNESS: The patient is a 63-year-old gentleman well known to me from previous [facility] admissions. The patient has a coronary artery disease with extensive history of multiple stent placements, history of myocardial infarction, cardiomyopathy with decreased ejection fraction, atrial fibrillation, mild diabetes. The patient back in 09/07/2018 underwent a stent placement to P DA/RCA by Dr. Huynh. The patient subsequently developed hematuria and was seen in my office. The patient was referred to Dr. Zamudio from Urology standpoint. Subsequently due to scheduling issues, the patient saw Dr. Gurvinder Lopez from urology standpoint and was diagnosed with bladder cancer. The pa sada underwent surgery for that and as per patient, he was diagnosed with high grade non-invasive bl adder cancer. The patient is currently getting treatment with BCG. The patient for the last few day s, had been having increasing anginal chest pain and was seen by Dr. Huynh as an outpatient. The p atient was noted to have single vessel obstructive coronary artery disease involving high-grade steno sis of the patient's posterior PDA in-stent restenotic lesion. The patient underwent a successful PC I and stent placement x1. The patient also was noted to have a branch of right coronary artery and p osterolateral branch with a significant in-stent restenosis; however, no intervention was performed t shahnaz due to contrast load and radiation dose. The patient will be maintained on aspirin and Brilinta and a staged procedure intervention to the posterolateral branch has been recommended. The patient currently is chest pain free. The patient denied any headache, dizziness, syncope. No history of re cent hematuria. No history of abdominal pain. No history of fever or chills. No history of cough, sore throat. No history of leg edema. No history of resting leg pain or claudication. No history o f focal weakness. REVIEW OF SYSTEMS: Total of 12 systems were reviewed, all pertinent positive and negative findings h ave been described in the HPI. PAST MEDICAL HISTORY: Multiple primary coronary angioplasty and stent placement in the past. FAMILY HISTORY: Father at young age secondary to coronary artery disease. Brother had coronary artery disease and multiple primary coronary angioplasty. Mother with history of cancer. SOCIAL HISTORY: Ex-smoker, now occasionally smokes marijuana. No alcohol abuse. ALLERGIES: NO KNOWN DRUG ALLERGIES. PHYSICAL EXAMINATION: GENERAL: The patient is awake, alert, fairly oriented. VITAL SIGNS: Temperature 98.5, pulse 55, respirations 16, blood pressure 153/72, O2 saturation 98% o n room air. HEENT: Atraumatic, normocephalic. Conjunctivae are normal. Nose and ears normal. Oropharynx gross ly negative. NECK: Supple, no mass or thyromegaly, no carotid bruit. CHEST: Fairly clear. CARDIOVASCULAR: S1, S2 normal, no murmur. ABDOMEN: Soft, nondistended, nontender. Bowel sounds present. EXTREMITIES: No leg edema. Pedal pulses palpable. No clubbing, cyanosis. SKIN: Without acute rash. The right groin had a slight bleeding from recent cardiac catheterization . NEUROLOGIC: The patient has poor radial arteries because of previous multiple attempts of APPLICATIONS ANALYST. LABORATORY DATA: Done today, WBC 11.8, hemoglobin 9.6, platelet 275. Chemistry sodium 139, potassiu m 4.2, BUN 20, creatinine 119, creatinine back in 10/18/2018 was only 1. Coagulation profile unremar kable. Chest x-ray, no acute changes. IMPRESSION: 1. Unstable angina, status post cardiac catheterization and successful primary coronary angioplasty and stent placement to the posterior patent ductus arteriosus. Detailed report as above. 2. Posterolateral branch and branch of right coronary artery with significant in-stent restenosis, a waiting further recommendation from cardiology regarding staged procedure versus discharge and readmi t at the future date. The patient will be started on aspirin, Brilinta and metoprolol as tolerated. 3. Hypertension. Continue aspirin, Brilinta, hydralazine, Norvasc and metoprolol as tolerated. 4. Dyslipidemia. Continue Lipitor. 5. Diabetes. We will hold off on metformin due to recent cardiac catheterization and also elevated creatinine. The patient will be given IV fluids and we will put him on sliding scale insulin. 6. Bladder cancer status post surgery and currently getting Bacillus-Calmette Kasey treatment. The patient is to follow up with Dr. Gurvinder Lopez as an outpatient. Plan of care discussed with the geneva tomlin's nurse as well as Dr. Alpesh Huynh from cardiac standpoint. Due to increasing creatinine, we will order followup basic metabolic panel tomorrow. If the patient has further worsening of her cre atinine, then we will obtain Nephrology consultation. Dictated By: GLORY PERSAUD/DAISY Conf#: [id number] DID#: [id number] CC: ALPESH HUYNH MD; KATY HE MD; ARLENE KAHN MD; NINI BRAVO MD;*EndCC*
[2019-02-01] MEDS ORDERED: PANTOPRAZOLE (EC) 40 MG TAB PO SCH (06:00)
[2019-02-01] MEDS: INSULIN ASPART [NOVOLOG] 3 ML PEN SC SCH ×2 (07:35→11:30)
[2019-02-01] MEDS: METOPROLOL 25 MG TAB PO SCH (08:37)
[2019-02-01] MEDS: TICAGRELOR 90 MG TABLET PO SCH (08:37)
[2019-02-01] MEDS ORDERED: AMLODIPINE 10 MG TAB PO SCH (09:00)
[2019-02-01] MEDS ORDERED: LISINOPRIL 20 MG TAB PO SCH (09:00)
[2019-02-01] MEDS ORDERED: ISOSORBIDE MONONITRATE(SR)60 MG TAB PO SCH (09:00)
[2019-02-01] MEDS ORDERED: ASPIRIN 81 MG TAB PO SCH (09:00)
--- NOTE | 2019-02-01 11:19 | CONS ---
Assessment/Plan Assessment/Plan Hospital Course (Demo Recall) IMP: 1.POD#1 s/p PTCA/stent x 1 to RCA/PDA with MELISA 2.HTN 3.HL 4.H/O bladder ca s/p recent resection 5.Renal insuff Recc: -OK for tele -Continue asa/brilinta -Continue norvasc//imdur/BB as patient will comply -Continue statin -Continue hydralazine with possible need for increase to im prove overal BP -Patient will require staged procedure to intervene upon additional vessel but awaiting special catheter for procedure and thus likely if asymptomatic will be ok for d/c from cardiac stndpoint with return in 1-2 weks for procedure attempt. Consultation Date/Type/Reason Admit Date/Time Jan 31, 2019 at 15:29 Initial Consult Date 02/01/19 Type of Consult Cardiology Reason for Consultation unstable angina Requesting Provider: GLORY MCNEIL MD Date/Time of Note DATE: 02/01/19 TIME: 11:13 Exam/Review of Systems Vital Signs Vitals Vital Signs Date Temp Pulse Resp B/P (MAP) Pulse Ox O2 O2 Flow FiO2 Time Delivery Rate 02/01/19 59 08:00 02/01/19 17 117/85 99 Room Air 06:10 (96) 02/01/19 98.0 04:00 Intake and Output 01/31/19 01/31/19 02/01/19 1515:00 23:00 07:00 IntakeIntake Total 1020 ml 925 ml OutputOutput Total 1800 ml 1000 ml BalanceBalance -780 ml -75 ml Exam Exam Review of Systems: CONSTITUTIONAL: No fevers, chills. PULMONARY: No sob CARDIOVASCULAR: No chest pain/palpitations GASTROINTESTINAL: No nausea/vomiting. GENITOURINARY: No hematuria/dysuria. MUSCULOSKELETAL: No myagias/arthalgias. PSYCHIATRIC: The patient denies depression. NEUROLOGIC: No weakness Constitutional: alert, oriented Psych: no complaints Head: normocephalic ENMT: mucosa pink and moist Neck: supple, jvd (9 xm water) Respiratory: clear to auscultation Cardiovascular: regular rate and rhythm Gastrointestinal: soft, non-tender Musculoskeletal: muscle tone (normal) Extremities: edema (none) Neurological: other (No focal deficits) Labs Result Diagram: 02/01/19 0439 02/01/19 0439 Results 24hrs Laboratory Tests Test 01/31/19 11:27 01/31/19 12:06 01/31/19 12:40 01/31/19 19:10 Prothrombin Time 13.4 Prothrombin Time Ratio 1.0 INR International 1.01 Normalized Ratio White Blood Count 11.8 H Red Blood Count 4.79 # Hemoglobin 11.6 L Hematocrit 36.1 L Mean Corpuscular Volume 75.4 L Mean Corpuscular 24.2 L Hemoglobin Mean Corpuscular 32.1 Hemoglobin Concent Red Cell Distribution 18.6 #H Width Platelet Count 275 Mean Platelet Volume 9.7 Immature Granulocytes % 0.500 H Neutrophils % 72.4 Lymphocytes % 17.6 Monocytes % 6.9 Eosinophils % 1.9 Basophils % 0.7 Nucleated Red Blood 0.0 Cells % Immature Granulocytes # 0.060 H Neutrophils # 8.5 H Lymphocytes # 2.1 Monocytes # 0.8 Eosinophils # 0.2 Basophils # 0.1 Nucleated Red Blood 0.0 Cells # Activated 32.7 Partial Thromboplast Time Sodium Level 139 Potassium Level 4.3 Chloride Level 105 Carbon Dioxide Level 24 Anion Gap 10 Blood Urea Nitrogen 28 H Creatinine 1.38 H Est Glomerular Filtrat 52 L Rate mL/min Glucose Level 138 Calcium Level 9.6 Triglycerides Level 123 Cholesterol Level 145 LDL Cholesterol, 72 Calculated HDL Cholesterol 48 Cholesterol/HDL Ratio 3.0 Bedside Glucose 129 143 Test 01/31/19 20:41 01/31/19 22:38 02/01/19 04:39 02/01/19 07:49 Bedside Glucose 82 119 115 White Blood Count 14.6 #H Red Blood Count 4.53 L Hemoglobin 11.1 L Hematocrit 34.2 L Mean Corpuscular Volume 75.5 L Mean Corpuscular 24.5 L Hemoglobin Mean Corpuscular 32.5 Hemoglobin Concent Red Cell Distribution 18.7 H Width Platelet Count 243 Mean Platelet Volume 10.0 Immature Granulocytes % 0.500 H Neutrophils % 77.0 Lymphocytes % 13.9 L Monocytes % 6.2 Eosinophils % 1.9 Basophils % 0.5 Nucleated Red Blood 0.0 Cells % Immature Granulocytes # 0.070 H Neutrophils # 11.2 H Lymphocytes # 2.0 Monocytes # 0.9 Eosinophils # 0.3 Basophils # 0.1 Nucleated Red Blood 0.0 Cells # Sodium Level 141 Potassium Level 4.4 Chloride Level 106 Carbon Dioxide Level 26 Anion Gap 9 Blood Urea Nitrogen 22 H Creatinine 1.16 Est Glomerular Filtrat > 60 Rate mL/min Glucose Level 105 Calcium Level 9.2 Medications Medications Current Medications Acetaminophen (Tylenol Tab) 650 mg Q4H PRN PO PAIN; Start 01/31/19 at 15:30 Oxycodone/ Acetaminophen (Percocet (5/ 325)) 1 tab Q4H PRN PO PAIN; Start 01/31/19 at 15:30 Morphine Sulfate (morphine) 1 mg Q1H PRN IV PAIN; Start 01/31/19 at 15:30 Zolpidem Tartrate (Ambien) 5 mg HS MAY REPEAT X 1 PRN PO INSOMNIA; Start 01/31/19 at 15:30 Al Hydrox/Mg Hydrox/Simethicone (Mag-Al Plus) 30 ml Q4H PRN PO GASTROINTESTINAL UPSET; Start 01/31/19 at 15:30 Ondansetron HCl (Zofran Inj) 4 mg Q4H PRN IV NAUSEA AND/OR VOMITING; Start 01/31/19 at 15:30 Ticagrelor (Brilinta) 90 mg BID PO Last administered on 02/01/19 08:37; Admin Dose 90 MG; Start 01/31/19 at 21:00 Aspirin (Aspirin) 81 mg DAILY PO Last administered on 02/01/19at 08:25; Admin Dose 81 MG; Start 02/01/19 at 09:00 Amlodipine Besylate (Norvasc) 10 mg DAILY PO Last administered on 02/01/19at 08:26; Admin Dose 10 MG; Start 02/01/19 at 09:00 Atorvastatin Calcium (Lipitor) 40 mg QHS PO Last administered on 01/31/19at 20:37; Admin Dose 40 MG; Start 01/31/19 at 21:00 Hydralazine HCl (Apresoline) 25 mg BID PO Last administered on 02/01/19at 08:26; Admin Dose 25 MG; Start 01/31/19 at 21:00 Isosorbide Mononitrate (Imdur) 60 mg DAILY PO ; Start 02/01/19 at 09:00 Lisinopril (Zestril) 40 mg DAILY PO Last administered on 02/01/19at 08:25; Admin Dose 40 MG; Start 02/01/19 at 09:00 Metoprolol Tartrate (Lopressor) 12.5 mg BID PO ; Start 01/31/19 at 21:00 Pantoprazole (Protonix Tab) 40 mg DAILY@0600 PO Last administered on 02/01/19at 06:16; Admin Dose 40 MG; Start 02/01/19 at 06:00 Insulin Aspart (Novolog Insulin Pen) NOVOLOG *MILD* ALGORITHM WITH MEALS BEDTIME SC ; Start 01/31/19 at 18:00 Miscellaneous Information 1 ea NOTE XX ; Start 01/31/19 at 19:30 Glucose (Glutose) 15 gm Q15M PRN PO DECREASED GLUCOSE; Start 01/31/19 at 19:30 Glucose (Glutose) 22.5 gm Q15M PRN PO DECREASED GLUCOSE; Start 01/31/19 at 19:30 Dextrose (D50w Syringe) 25 ml Q15M PRN IV DECREASED GLUCOSE; Start 01/31/19 at 19:30 Dextrose (D50w Syringe) 50 ml Q15M PRN IV DECREASED GLUCOSE; Start 01/31/19 at 19:30 Glucagon (Glucagen) 1 mg Q15M PRN IM DECREASED GLUCOSE; Start 01/31/19 at 19:30 Glucose (Glutose) 15 gm Q15M PRN BUCCAL DECREASED GLUCOSE; Start 01/31/19 at 19:30 ALPESH WELCH Feb 01, 2019 11:19
[2019-02-01] MEDS ORDERED: ALTEPLASE (CATHFLO) 2 MG INJ CATHETER PRN (14:30)
--- NOTE | 2019-02-01 16:35 | RADRPT ---
Vent Rate: 56 bpm RR Interval: 1068 msec WI Interval: 143 msec QRS Duration: 113 msec QT Interval: 455 msec QTC Interval: 440 msec P-R-T Ewing: 55 - -65 - 42 degrees Sinus rhythm...normal P axis, V-rate 50- 99 Left anterior fascicular block...axis(240,-40), init forces inf Electronically Signed By: Chau Huynh
== END 2019-02-01 14:30 | disposition home or self-care (01) ==
LOC: SDS 11:03 → ICU 15:29 → SDS 15:29 → UNDOADMOB 15:29 → UNDODISOB 02-01 14:30 → SDS 02-01 14:30
PROVIDERS: ATTEND Internal Medicine
DX: I25.10 Atherosclerotic heart disease of native coronary artery without angina pectoris (principal); I10 Essential (primary) hypertension; E78.5 Hyperlipidemia, unspecified
CPT/HCPCS: 71045; 80048; 80061; 82550; 82553; 82962; 84484; 85025; 85610; 85730; 87081; 93005; 93458; C1725; C1757; C1760; C1874; C1887; C1894; C9600; J0583; J1644; J1815; J2250; J3010; J7040; Q9967

== ENCOUNTER 2019-05-17 07:09 | Inpatient (IN) | payer MEDICARE, BC, MEDICAID ==
[2019-05-17] VITALS (39 sets, daily range): BP systolic 107–155; BP diastolic 52–79; PULSE 50–79; RESP 15–25; Ht 177.8 cm; Wt 68.7 kg
[~2019-05-17] VITALS: Ht 177.8 cm; Wt 68.7 kg
[~2019-05-17 07:09] MED LIST changes: +DIAZEPAM 5 MG TAB PO ONE; +DIPHENHYDRAMINE 50 MG CAP PO ONE; +FAMOTIDINE 20 MG TAB PO ONE; +METF-849 PO; -METF500T24 PO; -OMEP20CA16 PO; +OMEP20CA17 PO
[2019-05-17] MEDS ORDERED: IODIXANOL LOCM 100 ML BTL ONE ×3 (07:57→11:39)
[2019-05-17] MEDS ORDERED: LIDOCAINE 1% (MDV) 20 ML INJ ONE ×2 (07:57→11:46)
[2019-05-17] MEDS ORDERED: HEPARIN 1000 UNITS/ML 10 ML INJ ONE (08:06)
[2019-05-17] MEDS ORDERED: VERAPAMIL 5 MG INJ ONE (08:06)
[2019-05-17] MEDS: SOD CHLORIDE 0.45% 1,000 ML IV SCH (08:34)
[2019-05-17] MEDS ORDERED: FENTAnyl 50 MCG/ML VIAL ONE ×2 (08:47→10:38)
[2019-05-17] MEDS ORDERED: MIDAZOLAM 1 MG/ML 2 ML INJ ONE (08:47)
[2019-05-17] MEDS ORDERED: IOHEXOL 350MG/ML 50 ML BTL ONE (09:32)
[2019-05-17] MEDS ORDERED: BIVALIRUDIN 250MG /NS 50 ML 50 ML IVPB ONE ×2 (10:04→11:45)
[2019-05-17] MEDS ORDERED: niCARdipine 25 MG INJ ONE (10:08)
[2019-05-17] MEDS ORDERED: ONDANSETRON 4 MG INJ ONE (10:12)
[2019-05-17] MEDS ORDERED: ALTEPLASE (CATHFLO) 2 MG INJ IV SCH (11:00)
[2019-05-17] MEDS ORDERED: EPTIFIBATIDE 20 ML ONE (11:46)
[2019-05-17] MEDS ORDERED: EPTIFIBATIDE 100 ML IV ONE (11:46)
[2019-05-17] MEDS ORDERED: TICAGRELOR 90 MG TABLET ONE (11:55)
[2019-05-17] MEDS: SOD CHLORIDE 0.9% 1,000 ML IV SCH ×2 (11:58→15:10)
[2019-05-17] MEDS ORDERED: ONDANSETRON 4 MG INJ IV PRN (12:00)
[2019-05-17] MEDS ORDERED: OXYCODONE/ACETAMINOPHEN (5/325) TAB PO PRN (12:00)
[2019-05-17] MEDS ORDERED: ACETAMINOPHEN 325 MG TAB PO PRN (12:00)
[2019-05-17] MEDS ORDERED: AL HYDROX/MG HYDROX/SIMETH 30 ML CUP PO PRN (12:00)
[2019-05-17] MEDS ORDERED: EPTIFIBATIDE 100 ML IV SCH (12:12)
[2019-05-17] MEDS ORDERED: GLUCOSE GEL 15 GRAM TUBE PO PRN ×2 (19:00)
[2019-05-17] MEDS ORDERED: GLUCOSE GEL 15 GRAM TUBE BUCCAL PRN (19:00)
[2019-05-17] MEDS ORDERED: DEXTROSE 50% 50 ML SYRINGE IV PRN ×2 (19:00)
[2019-05-17] MEDS ORDERED: GLUCAGON 1 MG INJ IM PRN (19:00)
[2019-05-17] MEDS ORDERED: ATORVASTATIN 40 MG TAB PO SCH (21:00)
[2019-05-17] MEDS: INSULIN ASPART [NOVOLOG] 3 ML PEN SC SCH (21:00)
[2019-05-17] MEDS: TICAGRELOR 90 MG TABLET PO SCH (23:15)
[2019-05-18] VITALS (14 sets, daily range): BP systolic 108–156; BP diastolic 47–88; PULSE 52–80; RESP 12–20
[2019-05-18] MEDS: SOD CHLORIDE 0.45% 1,000 ML IV SCH (05:22)
[2019-05-18] MEDS ORDERED: PANTOPRAZOLE (EC) 40 MG TAB PO SCH (06:00)
[2019-05-18] MEDS: INSULIN ASPART [NOVOLOG] 3 ML PEN SC SCH (07:35)
[2019-05-18] MEDS ORDERED: ISOSORBIDE MONONITRATE(SR)60 MG TAB PO SCH (09:00)
[2019-05-18] MEDS ORDERED: ASPIRIN (EC) 81 MG TAB PO SCH (09:00)
[2019-05-18] MEDS ORDERED: LISINOPRIL 20 MG TAB PO SCH (09:00)
[2019-05-18] MEDS ORDERED: NON-FORMULARY/PATIENT OWN MED (Omeprazole* 20 MG) PO SCH (09:00)
[2019-05-18] MEDS ORDERED: AMLODIPINE 10 MG TAB PO SCH (09:00)
[2019-05-18] MEDS: TICAGRELOR 90 MG TABLET PO SCH (09:17)
== END 2019-05-18 13:00 | disposition home or self-care (01) | DRG 247 ==
LOC: SDS 07:09 → REC 17:39 → SDS 17:39 → OBSVTOIN 21:41 → ICU 22:26
PROVIDERS: ADMIT Internal Medicine; ATTEND Internal Medicine
PROC: B211YZZ Fluoroscopy of Multiple Coronary Arteries using Other Contrast (ICD-10-PCS; 2019-05-17)
PROC: B215YZZ Fluoroscopy of Left Heart using Other Contrast (ICD-10-PCS; 2019-05-17)
PROC: 3E033PZ Introduction of Platelet Inhibitor into Peripheral Vein, Percutaneous Approach (ICD-10-PCS; 2019-05-17)
PROC: 3E07317 Introduction of Other Thrombolytic into Coronary Artery, Percutaneous Approach (ICD-10-PCS; 2019-05-17)
PROC: 027034Z Dilation of Coronary Artery, One Artery with Drug-eluting Intraluminal Device, Percutaneous Approach (ICD-10-PCS; principal; 2019-05-17 09:00)
PROC: 4A023N7 Measurement of Cardiac Sampling and Pressure, Left Heart, Percutaneous Approach (ICD-10-PCS; 2019-05-17 09:00)
DX: I25.10 Atherosclerotic heart disease of native coronary artery without angina pectoris (principal); T82.855A Stenosis of coronary artery stent, initial encounter; I25.2 Old myocardial infarction; I25.5 Ischemic cardiomyopathy; E11.9 Type 2 diabetes mellitus without complications; I10 Essential (primary) hypertension; E78.5 Hyperlipidemia, unspecified; Z85.51 Personal history of malignant neoplasm of bladder; Z82.49 Family history of ischemic heart disease and other diseases of the circulatory system; Z87.891 Personal history of nicotine dependence; Y84.0 Cardiac catheterization as the cause of abnormal reaction of the patient, or of later complication, without mention of misadventure at the time of the procedure
CPT/HCPCS: 71045; 80048; 80061; 82550; 82553; 82962; 83036; 84484; 85025; 85610; 85730; 87081; 92920; 93005; 93458; G0378; C1725; C1760; C1887; C1894; J0583; J1327; J1644; J1815; J2250; J2405; J2997; J3010; Q9967